=== PATIENT | female | born 1990 | race Caucasian/White ===

== ENCOUNTER 2019-03-19 16:02 | Inpatient (IN) | payer BC ==
[~2019-03-19 16:02] MED LIST: ISOVUE-370 76%-LOCM 1 ML ONE; PHENYLEPHRINE-NS 100 MCG/ML 10 ML SYRINGE ONE; Rocuronium Bromide 10 MG/ML (10ML VIAL) ONE; ePHEDrine 50 MG/ML VIAL ONE
[2019-03-19] MEDS ORDERED: Ketamine 50 MG/ML (10ML VIAL) ONE (16:17)
[2019-03-19] MEDS ORDERED: Succinylcholine Chloride 20 MG/ML 10 ml SYRINGE FS ONE (16:17)
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
[2019-03-19] MEDS ORDERED: Midazolam HCl 2 mg/2 ml Vial ONE ×3 (16:28→17:33)
[2019-03-19] MEDS ORDERED: Fentanyl 100 MCG/2 ML VIAL ONE (16:28)
[2019-03-19 16:34] LABS: Hemoglobin 12.2 g/dL (12.0-16.0); Mean Corpuscular HGB CONC 32.2 g/dL (32.0-36.0); Mean Corpuscular Volume 96.2 fL (78.0-98.0); Mean Platelet Volume 7.6 fL (7.4-10.4); Platelet Count 333 thou/uL (130-400); RBC Distribution Width 12.2 % (11.5-14.5); Red Blood Cell (RBC) Count 3.93 mill/uL (4.20-5.40); White Blood Cell (WBC) Count 39.2 thou/uL (4.8-10.8)
[2019-03-19 16:41] LABS: INR-International Normal Ratio 1.1; PTT 28.2 SEC (22.9-36.1); Prothrombin Time 14.5 SEC (12.0-14.7)
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
[2019-03-19 16:48] LABS: Band 23 % (5-11); Lymphocytes 5 % (21-51); MDiff Complete? YES; Metamyelocyte 2 % (0-0); Monocytes 5 % (0-10); Neutrophil 63 % (42-75); Platelet Morphology Comment Appears Adequate; RBC Morphology Normal; Reactive Lymphocytes 2 % (0-10)
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
[2019-03-19 16:56] LABS: ALT (SGPT) 176 U/L (8-55); AST (SGOT) 233 U/L (5-34); Albumin 4.3 g/dL (3.5-5.0); Alkaline Phosphatase 96 U/L (40-150); Anion Gap 20 mmol/L (10-20); BUN (Urea Nitrogen) 9 mg/dL (7.0-18.7); Bilirubin, Total 1.6 mg/dL (0.2-1.2); Calc. Creatinine Clearance 0 mL/min (70-130); Calcium 9.3 mg/dL (7.8-10.44); Carbon Dioxide 19 mmol/L (22-29); Chloride 102 mmol/L (98-107); Estimated GFR-MDRD 61; Globulin 2.6 g/dL (2.4-3.5); Glucose 130 mg/dL (70-105); Potassium 3.2 mmol/L (3.5-5.1); Protein, Total 6.9 g/dL (6.0-8.3); Sodium 138 mmol/L (136-145)
--- NOTE | 2019-03-19 16:59 | CT ---
CT Cervical Spine WO Con Indication: Pain/Injury COMPARISON: None FINDINGS: Acute fracture/subluxation: There is an acute fracture involving the right C6 lamina extending into t he spinous process Spinal alignment: Reversal normal cervical curvature. There is slight widening of the interspinous sp aces notably at the mid cervical spine. This may relate to ligamentous injury from flexion/extension injury. Vertebral body heights: Maintained. Cervical spine degenerative change: None of significance. IMPRESSION: Acute right C6 laminar fracture extending in the spinous process. There is a reversal normal cervical curvature, with associated widening of the interspinous spaces. Consider MRI for further interrogation for associated, potential ligamentous injury. Telephone call placed to ER physician at 1650 hours.
[2019-03-19] MEDS ORDERED: Fentanyl 250 MCG/5 ML VIAL ONE (17:33)
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
[2019-03-19] MEDS ORDERED: Levofloxacin 500 mg/D5W 100 ml Premix Bag ONE (18:25)
[2019-03-19 18:33] LABS: BHCG - Serum Negative (NEGATIVE); Pregs Control Background? CLEAR/WHITE (CLR/WHITE); Pregs Control Bar Appear? YES (CONTROL BAR)
[2019-03-19] MEDS ORDERED: Iothalamate Meglumine 60% 50 ML VIAL FS ONE (18:34)
--- NOTE | 2019-03-19 19:11 | RAD ---
AP VIEW OF THE PELVIS: 03/19/19 INDICATION: History of emergency examination. FINDINGS: There is an IUD in the central aspect of the pelvis. The obturator ring fractures bilaterally are sim ilar appearing to a recent CT dated 03/19/19. Left pubic root fracture is unchanged. Right comminuted sacral ala fracture is not appreciably changed. IMPRESSION: Comminuted pelvic fractures. POS: BH
[2019-03-19] MEDS ORDERED: Phenylephrine 1% Nasal Spray 15 ML BOT ONE (19:28)
[2019-03-19] MEDS ORDERED: Phenylephrine HCL 10 MG/ML VIAL ONE (19:28)
[2019-03-19] MEDS ORDERED: Albumin 5% 500 ML ONE (19:54)
[2019-03-19] MEDS ORDERED: Insulin Regular 300 UNITS/3 ML VIAL ONE (19:57)
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
[2019-03-19 22:43] LABS: Actual Bicarbonate (HCO3a) 16.4 mEq/L (22-28); Base Excess (BEa) -8.8 mEq/L (-2.0 to +3.0); CO2 Tension 32.9 mmHg (35.0-45.0); Calcium, Ionized 1.08 mmol/L (1.12-1.30); Carboxyhemoglobin (COHb) 0.9 gm% (0.0-3.0); Hemoglobin (Hb) 11.3 g/dL (12.0-16.0); O2 Tension (PaO2) 210.8 mmHg (80.0-100.0); Potassium - ABG Lab 4.31 mmol/L (3.70-5.30); pH, Arterial 7.32 (7.35-7.45)
[2019-03-19] MEDS: fentaNYL Citrate/PF 2,000 MCG in Sodium Chloride 0.9% 60 ML IV SCH (22:47)
[2019-03-19 22:49] LABS: ALV-art Gradient 33.275 (0-20); Puncture Site line
[2019-03-19 22:55] LABS: #Lymphocytes 0.8 thou/uL (1.20-3.40); %Eosinophils 0.1 % (0.0-10.0); %Monocytes 7.1 % (0.0-10.0); %Neutrophils 86.8 % (42.0-75.0); Hemoglobin 10.8 g/dL (12.0-16.0); Mean Corpuscular HGB CONC 33.3 g/dL (32.0-36.0); Mean Corpuscular Hemoglobin 30.3 pg (27.0-31.0); Mean Platelet Volume 7.5 fL (7.4-10.4); Platelet Count 158 thou/uL (130-400); RBC Distribution Width 14.9 % (11.5-14.5); Red Blood Cell (RBC) Count 3.55 mill/uL (4.20-5.40); White Blood Cell (WBC) Count 13.8 thou/uL (4.8-10.8)
[2019-03-19] MEDS ORDERED: Propofol BOLUS 1,000 MG/100 ML VIAL IV PRN (22:56)
[2019-03-19] MEDS ORDERED: fentaNYL Citrate/PF 2,000 MCG in Sodium Chloride 0.9% 60 ML IV SCH (22:56)
[2019-03-19] MEDS ORDERED: Morphine 2 MG/ML SYRINGE SLOW IVP PRN (22:56)
[2019-03-19] MEDS ORDERED: Lorazepam 2 MG/ML VIAL SLOW IVP PRN (22:56)
[2019-03-19] MEDS ORDERED: Fentanyl BOLUS 250 ML IVPB PRN (22:56)
[2019-03-19] MEDS ORDERED: DISCONTINUE PREVIOUS NARCOTIC PAIN MEDICATIONS AND BENZODIAZEPINES FS SCH (22:56)
[2019-03-19] MEDS ORDERED: Ventilator Sedation Protocol 1 EACH FS SCH (23:00)
[2019-03-19] MEDS ORDERED: Promethazine HCl 25 MG/ML VIAL IM PRN (23:05)
[2019-03-19] MEDS ORDERED: Dextrose 50% Abboject 50 ML SYRINGE SLOW IVP PRN (23:05)
[2019-03-19] MEDS ORDERED: Dextrose 5% in Water 1,000 ML IV PRN (23:05)
--- NOTE | 2019-03-19 23:06 | RAD ---
Retrograde pyelogram: 03/19/2019 COMPARISON: None HISTORY: Retrograde with stent placement FINDINGS: Extensive pelvic fractures are noted, better assessed on recent CT examination. Contrast extravasates from the renal collecting system on the right consistent with acute injury. Abn ormal contrast media seen adjacent to the distal left ureter suggesting a ureteral injury or bladder injury at the UVJ. Final imaging demonstrates placement of bilateral double-J ureteral stents . IMPRESSION: Bilateral double-J ureteral stent placement. Contrast extravasation in the region of the right kidney a.m. distal left ureter suggest areas of acute urothelial disruption/injury.
[2019-03-19 23:13] LABS: Lactic Acid 5.3 mmol/L (0.5-2.2)
[2019-03-19] MEDS ORDERED: Famotidine 20 MG TAB PO SCH (23:15)
[2019-03-19] MEDS: Sodium Chloride 0.9% 1,000 ML IV SCH (23:16)
[2019-03-19] MEDS: Propofol 1,000 MG/100 ML VIAL IV PRN (23:16)
[2019-03-19 23:21] LABS: Anion Gap 14 mmol/L (10-20); BUN (Urea Nitrogen) 9 mg/dL (7.0-18.7); Calc. Creatinine Clearance 0 mL/min (70-130); Calcium 7.6 mg/dL (7.8-10.44); Carbon Dioxide 17 mmol/L (22-29); Chloride 108 mmol/L (98-107); Estimated GFR-MDRD 82; Glucose 166 mg/dL (70-105); Magnesium 1.4 mg/dL (1.6-2.6); Phosphorus 3.6 mg/dL (2.3-4.7); Potassium 4.4 mmol/L (3.5-5.1); Sodium 135 mmol/L (136-145)
[2019-03-19] MEDS ORDERED: Calcium Chloride 1 GM/10 ML Abboject SYRINGE IVP SCH (23:30)
[2019-03-19] MEDS ORDERED: Magnesium Sulfate 4 GM in Sodium Chloride 0.9% 250 ML 250 ML IVPB SCH (23:45)
[2019-03-20 00:58] LABS: Amphetamine Not Detected (NotDetected); Barbiturates Screen Not Detected (NotDetected); Benzodiazepine Screen Not Detected (NotDetected); Cocaine Metabolite Screen Not Detected (NotDetected); Medtox Control Line Valid? VALID (VALID); Medtox Reader # READER 1; Methadone Not Detected (NotDetected); Methamphetamine Detected (NotDetected); Opiate Screen Not Detected (NotDetected); Oxycodone Screen Not Detected (NotDetected); Phencyclidine (PCP) Not Detected (NotDetected); THC/Cannabinoid Screen Not Detected (NotDetected); Tricyclic Screen Not Detected (NotDetected)
[2019-03-20] MEDS ORDERED: Famotidine/PF 20 mg/2ml Vial SLOW IVP SCH (01:15)
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
[2019-03-20 05:16] LABS: #Lymphocytes 1.4 thou/uL (1.20-3.40); #Monocytes 1.2 thou/uL (0.11-0.59); #Neutrophils 10.7 thou/uL (1.40-6.50); %Basophils 0.1 % (0.0-1.0); %Eosinophils 0.1 % (0.0-10.0); %Lymphocytes 10.3 % (21.0-51.0); %Monocytes 9.1 % (0.0-10.0); %Neutrophils 80.4 % (42.0-75.0); Hemoglobin 10.7 g/dL (12.0-16.0); Mean Corpuscular HGB CONC 33.1 g/dL (32.0-36.0); Mean Corpuscular Hemoglobin 30.1 pg (27.0-31.0); Mean Corpuscular Volume 90.9 fL (78.0-98.0); Platelet Count 178 thou/uL (130-400); RBC Distribution Width 15.1 % (11.5-14.5); Red Blood Cell (RBC) Count 3.57 mill/uL (4.20-5.40); White Blood Cell (WBC) Count 13.3 thou/uL (4.8-10.8)
[2019-03-20 06:06] LABS: Lactic Acid 2.8 mmol/L (0.5-2.2)
[2019-03-20 06:09] LABS: Anion Gap 12 mmol/L (10-20); BUN (Urea Nitrogen) 8 mg/dL (7.0-18.7); Calc. Creatinine Clearance 117 mL/min (70-130); Carbon Dioxide 19 mmol/L (22-29); Chloride 108 mmol/L (98-107); Estimated GFR-MDRD Greater than 90; Glucose 140 mg/dL (70-105); Phosphorus 3.4 mg/dL (2.3-4.7); Potassium 4.5 mmol/L (3.5-5.1); Sodium 134 mmol/L (136-145)
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
[2019-03-20] MEDS ORDERED: CEFAZOLIN 2 GM in Premix Bag 1 BAG IVPB SCH (07:45)
--- NOTE | 2019-03-20 07:45 | RAD ---
EXAM: XR Chest 1 View Portable PROVIDED CLINICAL HISTORY: Right thoracostomy tube. COMPARISON: 03/19/2019. FINDINGS: Endotracheal tube is again noted in place with tip overlying the T2-3 level. Right subclavian central venous catheter is now noted in place with tip overlying the right atrium. Nasogastric tube is also again noted place. A right-sided thoracostomy tube has been placed in the interim. No obvious pn eumothorax is seen. Halo device does obscure the lung apices. Partial visualization of ureteral stents. The cardiac silhouette and pulmonary vasculature are within normal limits. The lungs are clear, and n o pleural effusion, consolidation, or pneumothorax is appreciated on this exam. Right-sided rib fractures are again seen. IMPRESSION: 1. Multiple lines and tubes in place as described above. 2. Right-sided rib fractures. No pneumothorax is seen.
[2019-03-20] MEDS ORDERED: Famotidine 20 MG TAB PO SCH (09:00)
[2019-03-20] MEDS: Famotidine/PF 20 mg/2ml Vial SLOW IVP SCH ×2 (09:00→21:25)
[2019-03-20] MEDS ORDERED: Midazolam HCl 2 mg/2 ml Vial ONE ×2 (09:16→12:02)
[2019-03-20] MEDS: Sodium Chloride 0.9% 1,000 ML IV SCH ×3 (09:20→23:45)
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
[2019-03-20] MEDS ORDERED: Sodium Chloride 0.9% 1,000 ML IV SCH (09:45)
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
[2019-03-20] MEDS ORDERED: Hydrocortisone Sod Succ/PF 100 mg/2 ml Vial IVP SCH ×2 (10:45→15:00)
[2019-03-20 10:54] LABS: Actual Bicarbonate (HCO3a) 19.8 mEq/L (22-28); Base Excess (BEa) -4.4 mEq/L (-2.0 to +3.0); CO2 Tension 33.3 mmHg (35.0-45.0); Calcium, Ionized 1.11 mmol/L (1.12-1.30); Carboxyhemoglobin (COHb) 0.3 gm% (0.0-3.0); Hemoglobin (Hb) 10.1 g/dL (12.0-16.0); O2 Tension (PaO2) 163.8 mmHg (80.0-100.0); Potassium - ABG Lab 4.16 mmol/L (3.70-5.30); pH, Arterial 7.39 (7.35-7.45)
[2019-03-20 10:56] LABS: Puncture Site LINE
[2019-03-20 10:57] LABS: #Lymphocytes 2.2 thou/uL (1.20-3.40); #Monocytes 0.9 thou/uL (0.11-0.59); #Neutrophils 9.4 thou/uL (1.40-6.50); %Basophils 0.2 % (0.0-1.0); %Eosinophils 0.3 % (0.0-10.0); %Lymphocytes 17.2 % (21.0-51.0); %Monocytes 7.1 % (0.0-10.0); %Neutrophils 75.2 % (42.0-75.0); Hemoglobin 9.6 g/dL (12.0-16.0); Mean Corpuscular Volume 91.1 fL (78.0-98.0); Platelet Count 166 thou/uL (130-400); Red Blood Cell (RBC) Count 3.21 mill/uL (4.20-5.40); White Blood Cell (WBC) Count 12.6 thou/uL (4.8-10.8)
[2019-03-20 10:57] LABS: ALV-art Gradient 44.125 (0-20)
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
[2019-03-20] MEDS ORDERED: Calcium Chloride 1 GM/10 ML Abboject SYRINGE IVP SCH (11:45)
[2019-03-20] MEDS ORDERED: Fentanyl 100 MCG/2 ML VIAL ONE ×2 (12:02→13:43)
--- NOTE | 2019-03-20 14:17 | RAD ---
EXAM: XR Pelvis Minimum 3 Views PROVIDED CLINICAL HISTORY: ORIF pelvis COMPARISON: AP pelvis radiograph on 03/19/2019 FINDINGS: 6 intraoperative fluoroscopic images of the pelvis are submitted for interpretation. An external fixa tion device is noted in place. There are 2 long screws transversely oriented and transfixing the fracture of the right sacrum and transfixing each sacroiliac joint. Bilateral ureteral stents are noted in place. Skin clips overlie the lower abdomen and pelvis. A T-sh aped intrauterine contraceptive device is noted in place. There is visualization of bilateral superior and inferior pubic rami fractures. Fluoroscopy: Total fluoroscopy time is 171.5 seconds with total dose of 46.7 mGy. IMPRESSION: Internal fixation of fractures involving the right sacral ala as well as fixation of the bilateral sa croiliac joints with 2 long screws. Additional findings are as described above, and correlation with intraoperative findings is suggested.
[2019-03-20 15:22] LABS: Mean Corpuscular HGB CONC 32.6 g/dL (32.0-36.0); Mean Corpuscular Hemoglobin 29.8 pg (27.0-31.0); Mean Corpuscular Volume 91.6 fL (78.0-98.0); Mean Platelet Volume 8.2 fL (7.4-10.4); Platelet Count 115 thou/uL (130-400); RBC Distribution Width 15.1 % (11.5-14.5); Red Blood Cell (RBC) Count 2.68 mill/uL (4.20-5.40); White Blood Cell (WBC) Count 8.9 thou/uL (4.8-10.8)
[2019-03-20 15:33] LABS: Lactic Acid 0.9 mmol/L (0.5-2.2)
[2019-03-20] MEDS ORDERED: Ondansetron PF 4 MG/2 ML Vial ONE (15:51)
[2019-03-20] MEDS ORDERED: Dexamethasone 20 MG/5 ML VIAL ONE (15:51)
[2019-03-20] MEDS ORDERED: Rocuronium Bromide 10 MG/ML (10ML VIAL) ONE (15:51)
--- NOTE | 2019-03-20 15:56 | CT ---
CT of the pelvis without IV contrast INDICATION: Postoperative pelvis; evaluate hardware placement COMPARISON: Prior CT the chest, abdomen and pelvis dated 03/19/2019 FINDINGS: Since comparison examination there is been interval placement of an external fixator. The e xternal fixator pins project into the anterior column of the acetabulum bilaterally. There are bilateral obturator ring fractures. The left pubic root fracture is unchanged. There is been interval SI joints screws placed bilaterally across both joints fixating the comminuted right zone 3 sacral alar fracture. Fracture alignment is near-anatomic. The lowermost SI joint screw projects into the anterior aspect of the sacral central spinal canal on image 87 of the sagitta l series. The screw additionally breaches the very superior aspect of the right S2 neural foramina. There are bilateral ureteral stents. There is extensive edema involving the soft tissues of the lower pelvis. There is an IUD seen within the region of the uterus. There is mild anasarca. There is gas present within the lower abdominal cavity and pelvis which may be postoperative in nature. The patien t has a laparotomy wound. There is a Torres catheter within a decompressed bladder. IMPRESSION: 1. Postoperative pelvis. There is been interval placement of 2 SI joint arthrodesis screws traversing both SI joints. The lowermost SI joint screw traversing the S2 vertebral level projects in the anterior aspect of the sacral spinal canal and breaches the very superior aspect of the right S2 neur al foramina. The anterior pelvic fracture alignment appears relatively stable to the comparison CT evaluation. 2. There is scattered free fluid and free air within the lower pelvis, likely postoperative in nature and to some extent related to anasarca. 3. There is visualization of distal bilateral ureteral stents and a Torres catheter.
[2019-03-20] MEDS: CEFAZOLIN 2 GM in Premix Bag 1 BAG IVPB SCH ×2 (17:38→21:26)
[2019-03-20] MEDS: fentaNYL Citrate/PF 2,000 MCG in Sodium Chloride 0.9% 60 ML IV SCH (19:56)
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
--- NOTE | 2019-03-20 20:58 | RAD ---
Frontal radiograph chest: 03/20/2019 at 8:37 PM COMPARISON: 03/20/2019 at 7:19 AM HISTORY: Right chest tube FINDINGS: Stable right vascular catheter, nasogastric tube, endotracheal tube, and right chest tube. Heart and mediastinal contours are stable. No obvious pneumothorax is seen although assessment is suboptimal on portable imaging. Multiple partially imaged right-sided rib fractures are again noted. IMPRESSION: No significant interval change.
[2019-03-20] MEDS: Hydrocortisone Sod Succ/PF 100 mg/2 ml Vial IVP SCH (21:25)
[2019-03-20] MEDS ORDERED: fentaNYL Citrate/PF 2,000 MCG in Sodium Chloride 0.9% 60 ML IV SCH (22:26)
[2019-03-21 04:30] LABS: #Lymphocytes 0.8 thou/uL (1.20-3.40); #Monocytes 0.9 thou/uL (0.11-0.59); %Basophils 0.1 % (0.0-1.0); %Eosinophils 0.1 % (0.0-10.0); %Lymphocytes 6.7 % (21.0-51.0); %Neutrophils 85.2 % (42.0-75.0); Mean Corpuscular HGB CONC 33.2 g/dL (32.0-36.0); Mean Corpuscular Hemoglobin 30.6 pg (27.0-31.0); Mean Corpuscular Volume 92.1 fL (78.0-98.0); Mean Platelet Volume 8.6 fL (7.4-10.4); Platelet Count 104 thou/uL (130-400); RBC Distribution Width 14.8 % (11.5-14.5); Red Blood Cell (RBC) Count 2.28 mill/uL (4.20-5.40); White Blood Cell (WBC) Count 11.7 thou/uL (4.8-10.8)
[2019-03-21 04:42] LABS: Anion Gap 10 mmol/L (10-20); BUN (Urea Nitrogen) 9 mg/dL (7.0-18.7); Calc. Creatinine Clearance 133 mL/min (70-130); Calcium 8.3 mg/dL (7.8-10.44); Carbon Dioxide 21 mmol/L (22-29); Chloride 110 mmol/L (98-107); Estimated GFR-MDRD Greater than 90; Glucose 132 mg/dL (70-105); Magnesium 1.7 mg/dL (1.6-2.6); Phosphorus 2.2 mg/dL (2.3-4.7); Potassium 3.9 mmol/L (3.5-5.1); Sodium 137 mmol/L (136-145)
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
[2019-03-21] MEDS: CEFAZOLIN 2 GM in Premix Bag 1 BAG IVPB SCH (06:04)
[2019-03-21] MEDS: Hydrocortisone Sod Succ/PF 100 mg/2 ml Vial IVP SCH ×3 (06:05→22:11)
[2019-03-21 07:40] LABS: Actual Bicarbonate (HCO3a) 21.8 mEq/L (22-28); Base Excess (BEa) -3.6 mEq/L (-2.0 to +3.0); Calcium, Ionized 1.18 mmol/L (1.12-1.30); Carboxyhemoglobin (COHb) 1.2 gm% (0.0-3.0); Hemoglobin (Hb) 7.2 g/dL (12.0-16.0); O2 Tension (PaO2) 125.7 mmHg (80.0-100.0); Potassium - ABG Lab 3.82 mmol/L (3.70-5.30); pH, Arterial 7.34 (7.35-7.45)
[2019-03-21 07:42] LABS: Puncture Site LB
[2019-03-21] MEDS ORDERED: Magnesium 2 GM/50 ML 2 GM in Premix Bag 1 BAG IVPB SCH (08:00)
[2019-03-21] MEDS ORDERED: Potassium Phosphate 30 MMOL in Sodium Chloride 0.9% 500 ML IVPB SCH (08:00)
[2019-03-21] MEDS: Sodium Chloride 0.9% 1,000 ML IV SCH ×2 (08:27→20:19)
[2019-03-21] MEDS: Propofol 1,000 MG/100 ML VIAL IV PRN (08:27)
[2019-03-21] MEDS: Famotidine/PF 20 mg/2ml Vial SLOW IVP SCH ×2 (08:42→22:11)
--- NOTE | 2019-03-21 08:44 | RAD ---
CHEST 1 VIEW: HISTORY: Pneumothorax. Chest tube. Followup. COMPARISON: 03/20/2019. FINDINGS: Cardiac silhouette magnified by projection. Pulmonary vasculature is unremarkable. Mediastinum is m idline. Endotracheal catheter, nasogastric tube, and right subclavian central venous catheter remain in place. Right thoracostomy tube has been withdrawn slightly, so that the side hole now lies at the level of t he chest wall. A small amount of right lower lateral chest wall gas. No evidence of pneumothorax. IMPRESSION: 1. Slight retraction of the right thoracostomy tube as detailed above with a small amount of right c hest wall gas. 2. Other posttraumatic findings are stable. POS: [facility]
[2019-03-21] MEDS ORDERED: Morphine 4 MG/ML VIAL ONE (13:20)
[2019-03-21] MEDS ORDERED: Acetaminophen 1,000 MG in Premix Bag 1 BAG IVPB SCH (13:45)
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
[2019-03-21] MEDS: Acetaminophen 650 MG/20.3 ML UDCUP PO SCH ×3 (15:18→22:15)
[2019-03-21] MEDS: Acetaminophen 650 MG Suppository PR SCH ×2 (15:23→22:15)
[2019-03-21] MEDS: Morphine 4 MG/ML VIAL SLOW IVP PRN ×4 (15:42→22:17)
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
[2019-03-22] MEDS ORDERED: Lorazepam 2 MG/ML VIAL SLOW IVP SCH (01:45)
[2019-03-22] MEDS: Sodium Chloride 0.9% 1,000 ML IV SCH ×4 (01:47→22:27)
[2019-03-22] MEDS: Morphine 4 MG/ML VIAL SLOW IVP PRN (01:47)
[2019-03-22 03:54] LABS: #Monocytes 0.7 thou/uL (0.11-0.59); #Neutrophils 10.4 thou/uL (1.40-6.50); %Lymphocytes 7.9 % (21.0-51.0); %Monocytes 5.7 % (0.0-10.0); %Neutrophils 86.4 % (42.0-75.0); Hemoglobin 7.7 g/dL (12.0-16.0); Mean Corpuscular HGB CONC 33.4 g/dL (32.0-36.0); Mean Corpuscular Hemoglobin 30.8 pg (27.0-31.0); Mean Corpuscular Volume 92.2 fL (78.0-98.0); Mean Platelet Volume 7.8 fL (7.4-10.4); Platelet Count 118 thou/uL (130-400); RBC Distribution Width 14.3 % (11.5-14.5)
[2019-03-22 04:14] LABS: Anion Gap 11 mmol/L (10-20); BUN (Urea Nitrogen) 9 mg/dL (7.0-18.7); Calc. Creatinine Clearance 147 mL/min (70-130); Calcium 8.5 mg/dL (7.8-10.44); Carbon Dioxide 24 mmol/L (22-29); Chloride 109 mmol/L (98-107); Estimated GFR-MDRD Greater than 90; Glucose 101 mg/dL (70-105); Lactic Acid 0.8 mmol/L (0.5-2.2); Magnesium 1.9 mg/dL (1.6-2.6); Phosphorus 2.1 mg/dL (2.3-4.7); Potassium 3.7 mmol/L (3.5-5.1); Sodium 140 mmol/L (136-145)
[2019-03-22] MEDS: Acetaminophen 650 MG/20.3 ML UDCUP PO SCH ×2 (04:15→09:23)
[2019-03-22] MEDS: Acetaminophen 650 MG Suppository PR SCH ×2 (04:15→10:38)
[2019-03-22] MEDS: Hydrocortisone Sod Succ/PF 100 mg/2 ml Vial IVP SCH ×3 (06:17→22:17)
--- NOTE | 2019-03-22 08:48 | RAD ---
CHEST 1 VIEW: INDICATION: History of chest tube placement on water seal. COMPARISON: Prior study dated 03/21/2019. FINDINGS: There is a right side thoracostomy tube in place. The side hole in this catheter is seen adjacent to the right chest wall. There is a right subclavian central venous catheter. No pneumothorax is evid ent. Heart size is normal. The lungs are clear. The patient has been extubated with removal of the gastric catheter. IMPRESSION: 1. Interval extubation with removal of gastric catheter. 2. Right thoracostomy tube is unchanged. No pneumothorax is evident. Right subclavian central veno us catheter is stable. POS: BH
[2019-03-22] MEDS: Morphine 2 MG/ML SYRINGE SLOW IVP PRN ×2 (09:20→13:22)
[2019-03-22] MEDS: Famotidine/PF 20 mg/2ml Vial SLOW IVP SCH ×2 (09:24→22:17)
[2019-03-22 12:49] VITALS: BMI 26.4
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
[2019-03-23] MEDS: Morphine 4 MG/ML VIAL SLOW IVP PRN ×2 (00:24→08:33)
[2019-03-23] MEDS: Hydrocortisone Sod Succ/PF 100 mg/2 ml Vial IVP SCH ×3 (06:11→20:29)
[2019-03-23] MEDS: Famotidine/PF 20 mg/2ml Vial SLOW IVP SCH ×2 (08:33→20:29)
--- NOTE | 2019-03-23 08:58 | RAD ---
Portable chest: INDICATIONS: Follow-up chest tube removal. COMPARISON: 03/22/2019 FINDINGS: Right chest tube has been removed. There is now a small right pneumothorax noted, estimated 15-20%. T here is linear atelectasis in left lung base. Lungs otherwise clear. IMPRESSION: Small right pneumothorax.
[2019-03-23 09:04] LABS: #Lymphocytes 1.1 thou/uL (1.20-3.40); #Monocytes 0.5 thou/uL (0.11-0.59); %Basophils 0.4 % (0.0-1.0); %Eosinophils 0.1 % (0.0-10.0); %Lymphocytes 10.3 % (21.0-51.0); %Monocytes 5.1 % (0.0-10.0); %Neutrophils 84.1 % (42.0-75.0); Hemoglobin 8.1 g/dL (12.0-16.0); Mean Corpuscular HGB CONC 33.5 g/dL (32.0-36.0); Mean Corpuscular Volume 92.6 fL (78.0-98.0); Mean Platelet Volume 7.2 fL (7.4-10.4); Platelet Count 150 thou/uL (130-400); RBC Distribution Width 13.8 % (11.5-14.5); Red Blood Cell (RBC) Count 2.62 mill/uL (4.20-5.40); White Blood Cell (WBC) Count 10.7 thou/uL (4.8-10.8)
[2019-03-23 09:24] LABS: Anion Gap 9 mmol/L (10-20); BUN (Urea Nitrogen) 14 mg/dL (7.0-18.7); Calc. Creatinine Clearance 162 mL/min (70-130); Calcium 8.3 mg/dL (7.8-10.44); Carbon Dioxide 26 mmol/L (22-29); Chloride 109 mmol/L (98-107); Estimated GFR-MDRD Greater than 90; Glucose 99 mg/dL (70-105); Phosphorus 2.2 mg/dL (2.3-4.7); Potassium 3.7 mmol/L (3.5-5.1); Sodium 140 mmol/L (136-145)
[2019-03-23] MEDS: Sodium Chloride 0.9% 1,000 ML IV SCH ×2 (17:52→23:01)
[2019-03-23] MEDS: Morphine 2 MG/ML SYRINGE SLOW IVP PRN ×2 (18:34→20:38)
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
[2019-03-24] MEDS: Sodium Chloride 0.9% 1,000 ML IV SCH ×3 (03:44→22:47)
[2019-03-24] MEDS: Morphine 2 MG/ML SYRINGE SLOW IVP PRN ×2 (05:32→20:30)
[2019-03-24] MEDS: Hydrocortisone Sod Succ/PF 100 mg/2 ml Vial IVP SCH ×3 (05:38→22:08)
[2019-03-24 06:12] LABS: #Lymphocytes 1.7 thou/uL (1.20-3.40); #Monocytes 0.9 thou/uL (0.11-0.59); #Neutrophils 8.1 thou/uL (1.40-6.50); %Basophils 0.1 % (0.0-1.0); %Eosinophils 0.2 % (0.0-10.0); %Lymphocytes 15.7 % (21.0-51.0); %Neutrophils 75.9 % (42.0-75.0); Hemoglobin 8.1 g/dL (12.0-16.0); Mean Corpuscular HGB CONC 32.2 g/dL (32.0-36.0); Mean Corpuscular Hemoglobin 29.8 pg (27.0-31.0); Mean Corpuscular Volume 92.6 fL (78.0-98.0); Mean Platelet Volume 7.7 fL (7.4-10.4); Platelet Count 177 thou/uL (130-400); RBC Distribution Width 13.8 % (11.5-14.5); Red Blood Cell (RBC) Count 2.72 mill/uL (4.20-5.40); White Blood Cell (WBC) Count 10.6 thou/uL (4.8-10.8)
[2019-03-24 06:40] LABS: Anion Gap 8 mmol/L (10-20); BUN (Urea Nitrogen) 15 mg/dL (7.0-18.7); Calc. Creatinine Clearance 168 mL/min (70-130); Calcium 8.1 mg/dL (7.8-10.44); Carbon Dioxide 27 mmol/L (22-29); Chloride 109 mmol/L (98-107); Estimated GFR-MDRD Greater than 90; Glucose 107 mg/dL (70-105); Magnesium 1.7 mg/dL (1.6-2.6); Phosphorus 2.7 mg/dL (2.3-4.7); Potassium 3.6 mmol/L (3.5-5.1); Sodium 140 mmol/L (136-145)
--- NOTE | 2019-03-24 07:56 | RAD ---
PORTABLE CHEST: Date: 03/24/19 HISTORY: Follow-up pneumothorax. COMPARISON: 03/23/19. FINDINGS: Right pneumothorax is again seen. There is evidence of associated right effusion blunting the CP angl e. Small right pneumothorax does not appear significantly changed from yesterday. Central line is unc hanged in position. Left lung remains well aerated. There continues to be suggestion of streaky atele ctasis in the left lung base, unchanged from yesterday. IMPRESSION: Stable chest findings. Right pneumothorax and right effusion again noted. POS: OFF
[2019-03-24] MEDS: Famotidine/PF 20 mg/2ml Vial SLOW IVP SCH ×2 (09:06→20:32)
[2019-03-24] MEDS: Morphine 4 MG/ML VIAL SLOW IVP PRN ×3 (11:16→18:15)
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
[2019-03-24] MEDS ORDERED: Cyclobenzaprine 10 MG TAB PO PRN (20:07)
[2019-03-24] MEDS ORDERED: traMADol HCl 50 MG TAB PO PRN ×2 (20:07)
[2019-03-24] MEDS: Acetaminophen 500 MG TAB PO SCH ×2 (20:32→22:08)
[2019-03-24] MEDS: Ibuprofen 600 MG TAB PO SCH ×2 (20:32→22:09)
[2019-03-24] MEDS: Senokot S 8.6-50 MG TAB PO SCH ×2 (20:32→22:09)
[2019-03-25] MEDS: Acetaminophen 500 MG TAB PO SCH ×4 (02:01→20:58)
[2019-03-25] MEDS: Morphine 2 MG/ML SYRINGE SLOW IVP PRN ×2 (03:13→20:46)
[2019-03-25] MEDS: Ibuprofen 600 MG TAB PO SCH ×3 (03:21→20:58)
[2019-03-25] MEDS: Hydrocortisone Sod Succ/PF 100 mg/2 ml Vial IVP SCH (05:54)
[2019-03-25] MEDS: Senokot S 8.6-50 MG TAB PO SCH ×2 (08:40→20:58)
[2019-03-25] MEDS: Ascorbic Acid 500 mg Chewable Tablet PO SCH (08:40)
[2019-03-25] MEDS: Polyethylene Glycol 3350 17 GM Packet PO SCH (08:40)
[2019-03-25] MEDS: Ferrous Sulfate 325 MG TAB PO SCH ×2 (08:40→16:52)
--- NOTE | 2019-03-25 08:44 | RAD ---
CHEST 1 VIEW: HISTORY: Fall with right-sided pneumothorax. COMPARISON: 03/24/2019. FINDINGS: Persistent right-sided hydropneumothorax. Bilateral vascular congestion. Small left pleural effusio n. IMPRESSION: Stable right hydropneumothorax, vascular congestion, and small left pleural effusion. Continued shor t-term followup. POS: LISSETH
[2019-03-25 10:34] LABS: Actual Bicarbonate (HCO3a) 17.4 mEq/L (22-28); Analyzer IN Cardio OR; CO2 Tension 28.6 mmHg (35.0-45.0); Calcium, Ionized 1.11 mmol/L (1.12-1.30); Carboxyhemoglobin (COHb) 1.1 gm% (0.0-3.0); Hemoglobin (Hb) 12.8 g/dL (12.0-16.0); Potassium - ABG Lab 4.03 mmol/L (3.70-5.30)
[2019-03-25 10:35] LABS: Analyzer IN Cardio OR; Base Excess (BEa) -7.1 mEq/L (-2.0 to +3.0); CO2 Tension 35.2 mmHg (35.0-45.0); Calcium, Ionized 1.12 mmol/L (1.12-1.30); Carboxyhemoglobin (COHb) 0.8 gm% (0.0-3.0); Hemoglobin (Hb) 12.5 g/dL (12.0-16.0); Potassium - ABG Lab 3.94 mmol/L (3.70-5.30); pH, Arterial 7.33 (7.35-7.45)
[2019-03-25 10:41] LABS: Puncture Site A
[2019-03-25 10:50] LABS: Puncture Site A
[2019-03-25] MEDS ORDERED: Ketorolac Tromethamine 30 MG/ML VIAL IVP SCH (11:00)
[2019-03-25] MEDS ORDERED: Acetaminophen 1,000 MG in Premix Bag 1 BAG IVPB SCH (11:00)
[2019-03-25] MEDS ORDERED: ISOVUE-370 76%-LOCM 1 ML ONE (13:50)
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
--- NOTE | 2019-03-25 17:02 | RAD ---
XR Cystogram STANDARD History: [Evaluate for bladder rupture. Trauma.] Comparison: CT examination March 19, 2019 Findings: Patient was brought to fluoroscopy suite. Optical [employer] Silverer radiographs demonstrate postoperative arevalo es of the pelvis. Double-J ureteral stents are present bilaterally. There are fully threaded cannulated screws through the SI joints bilaterally. External fixator is present. Bilateral pulmonary obturator ring fractures are present. Patient was given 400 cc of contrast instilled retrograde through the Torres catheter. There is contra st extending along the right ureter. No contrast reflux into the left ureter. Contrast refluxed into the right ureter and into the right renal collecting system and the urinoma. No evidence for urinary bladder leak. Impression: 1. No evidence for urinary bladder leak. 2. No contrast is seen extending retrograde to the left ureter. 3. Retrograde contrast extending to the right ureter spills into a urinoma of the right intrarenal co llecting system.
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
[2019-03-26] MEDS: Morphine 2 MG/ML SYRINGE SLOW IVP PRN ×3 (01:03→21:17)
[2019-03-26] MEDS: Acetaminophen 500 MG TAB PO SCH ×4 (01:26→20:53)
[2019-03-26] MEDS: Ibuprofen 600 MG TAB PO SCH ×3 (03:29→20:53)
[2019-03-26 05:41] LABS: #Eosinphils 0.2 thou/uL (0.0-0.7); #Lymphocytes 2.3 thou/uL (1.20-3.40); %Basophils 0.3 % (0.0-1.0); %Eosinophils 1.3 % (0.0-10.0); %Lymphocytes 19.7 % (21.0-51.0); %Monocytes 8.7 % (0.0-10.0); Hemoglobin 8.9 g/dL (12.0-16.0); Mean Corpuscular HGB CONC 32.2 g/dL (32.0-36.0); Mean Corpuscular Hemoglobin 29.5 pg (27.0-31.0); Mean Corpuscular Volume 91.6 fL (78.0-98.0); Mean Platelet Volume 7.2 fL (7.4-10.4); Platelet Count 253 thou/uL (130-400); RBC Distribution Width 14.5 % (11.5-14.5); Red Blood Cell (RBC) Count 3.03 mill/uL (4.20-5.40); White Blood Cell (WBC) Count 11.5 thou/uL (4.8-10.8)
[2019-03-26 05:56] LABS: Magnesium 1.4 mg/dL (1.6-2.6); Phosphorus 3.1 mg/dL (2.3-4.7)
[2019-03-26] MEDS ORDERED: Magnesium 2 GM/50 ML 2 GM in Premix Bag 1 BAG IVPB SCH ×2 (08:30→09:00)
--- NOTE | 2019-03-26 08:48 | RAD ---
CHEST 1 VIEW: INDICATION: History of followup right-sided pneumothorax. FINDINGS: The small to moderate right-sided hydropneumothorax is likely unchanged in size from the comparison d ated 03/25/2019 at 6:53 a.m. Right side subclavian central venous catheter is unchanged in position. The left lung is clear. No acute osseous abnormality is evident. IMPRESSION: Stable right-sided hydropneumothorax. POS: BH
[2019-03-26] MEDS: Ferrous Sulfate 325 MG TAB PO SCH ×2 (09:00→17:21)
[2019-03-26] MEDS: Ascorbic Acid 500 mg Chewable Tablet PO SCH (09:00)
[2019-03-26] MEDS: Senokot S 8.6-50 MG TAB PO SCH ×2 (09:00→20:53)
[2019-03-26] MEDS: Polyethylene Glycol 3350 17 GM Packet PO SCH (09:00)
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
--- NOTE | 2019-03-26 10:10 | ULT ---
BILATERAL LOWER EXTREMITY VENOUS DOPPLER ULTRASOUND: HISTORY: Bilateral lower extremity edema. TECHNIQUE: Toney scale ultrasound with color flow and spectral Doppler imaging of the deep venous systems of the lower extremities performed bilaterally. FINDINGS: There is inadequate evaluation of the right femoral vein in the mid thigh. The remainder of the deep venous systems of the lower extremities including the common femoral, femoral, deep femoral, poplite al, posterior tibial, and greater saphenous veins demonstrate normal flow, compression, and augmentat ion. IMPRESSION: Limited exam. No evidence of deep vein thrombosis in either lower extremity. POS: [facility]
[2019-03-26] MEDS ORDERED: Lidocaine 1% (PF) 30 ML VIAL ONE (10:26)
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
--- NOTE | 2019-03-26 16:36 | PDOC.EVN ---
Event Note - Event Note Event Note: Patient continues to refuse chest tube placement. Risk of explained to patient if this procedure is ignored and the patient stares and does not communicate although pt able to follow commands and speak. Patients mother at bedside, who is also encouraging the patient to have the chest tube placed as she has a right sided pneumothorax. When a mental status exam is attempted the pt refuses to state her name and points to her arm band. When asked the date or location she states she does not know. Dr. Rivera also at bedside to speak with pt about the need for a chest tube and she states "I refuse the procedure" . [facility] consult placed. Spoke with [facility] rep who states pt refuses to communicate and speak to her.
[2019-03-27] MEDS: Acetaminophen 500 MG TAB PO SCH ×4 (01:16→21:57)
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
[2019-03-27] MEDS: Morphine 2 MG/ML SYRINGE SLOW IVP PRN ×2 (03:21→09:35)
[2019-03-27] MEDS: Ibuprofen 600 MG TAB PO SCH ×3 (04:09→21:57)
[2019-03-27 05:49] LABS: #Eosinphils 0.2 thou/uL (0.0-0.7); #Lymphocytes 1.8 thou/uL (1.20-3.40); #Neutrophils 8.4 thou/uL (1.40-6.50); %Basophils 0.3 % (0.0-1.0); %Eosinophils 1.5 % (0.0-10.0); %Lymphocytes 15.5 % (21.0-51.0); %Monocytes 8.9 % (0.0-10.0); Hemoglobin 9.3 g/dL (12.0-16.0); Mean Corpuscular HGB CONC 33.5 g/dL (32.0-36.0); Mean Corpuscular Hemoglobin 30.9 pg (27.0-31.0); Mean Corpuscular Volume 92.3 fL (78.0-98.0); Mean Platelet Volume 6.6 fL (7.4-10.4); Platelet Count 273 thou/uL (130-400); RBC Distribution Width 14.4 % (11.5-14.5); Red Blood Cell (RBC) Count 3.02 mill/uL (4.20-5.40); White Blood Cell (WBC) Count 11.3 thou/uL (4.8-10.8)
[2019-03-27 06:13] LABS: Anion Gap 10 mmol/L (10-20); BUN (Urea Nitrogen) 8 mg/dL (7.0-18.7); Calc. Creatinine Clearance 188 mL/min (70-130); Carbon Dioxide 27 mmol/L (22-29); Chloride 102 mmol/L (98-107); Estimated GFR-MDRD Greater than 90; Glucose 80 mg/dL (70-105); Magnesium 1.6 mg/dL (1.6-2.6); Phosphorus 3.5 mg/dL (2.3-4.7); Potassium 3.2 mmol/L (3.5-5.1); Sodium 136 mmol/L (136-145)
--- NOTE | 2019-03-27 07:47 | RAD ---
Exam: Chest one view HISTORY:Pneumothorax Comparison: 03/26/2019 FINDINGS: Cardiac silhouette: Normal Pulmonary vessels: Normal Costophrenic angles: Clear LUNGS: No masses or consolidation. Pneumothorax: Stable right-sided pneumothorax, without cardiac mediastinal shift. Stable right-sided vascular catheter. Small right-sided pleural effusion is suspected. Osseous abnormalities: None IMPRESSION: 1. Stable right-sided pneumothorax. 2. Stable pleural effusion.
[2019-03-27] MEDS: Ferrous Sulfate 325 MG TAB PO SCH ×2 (10:25→18:03)
[2019-03-27] MEDS: Ascorbic Acid 500 mg Chewable Tablet PO SCH (10:25)
[2019-03-27] MEDS: Senokot S 8.6-50 MG TAB PO SCH ×2 (10:25→21:57)
[2019-03-27] MEDS: Polyethylene Glycol 3350 17 GM Packet PO SCH (10:25)
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
[2019-03-28] MEDS: Acetaminophen 500 MG TAB PO SCH ×4 (02:13→21:51)
[2019-03-28] MEDS: Ibuprofen 600 MG TAB PO SCH ×3 (04:25→21:51)
--- NOTE | 2019-03-28 08:48 | RAD ---
CHEST 1 VIEW: Date: 03/28/19 HISTORY: Pneumothorax. COMPARISON: 03/27/19. FINDINGS: Essentially stable right-sided pneumothorax. Stable opacification of the right lung base. Stable righ t-sided vascular catheter. IMPRESSION: No significant change. POS: [facility]
[2019-03-28] MEDS: Polyethylene Glycol 3350 17 GM Packet PO SCH (10:35)
[2019-03-28] MEDS: Ferrous Sulfate 325 MG TAB PO SCH ×2 (10:35→17:24)
[2019-03-28] MEDS: Ascorbic Acid 500 mg Chewable Tablet PO SCH (10:35)
[2019-03-28] MEDS: Senokot S 8.6-50 MG TAB PO SCH ×2 (10:35→21:52)
[2019-03-28 12:16] LABS: Anion Gap 9 mmol/L (10-20); BUN (Urea Nitrogen) 7 mg/dL (7.0-18.7); Calc. Creatinine Clearance 180 mL/min (70-130); Calcium 8.3 mg/dL (7.8-10.44); Carbon Dioxide 27 mmol/L (22-29); Chloride 105 mmol/L (98-107); Estimated GFR-MDRD Greater than 90; Glucose 94 mg/dL (70-105); Potassium 3.5 mmol/L (3.5-5.1); Sodium 137 mmol/L (136-145)
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
[2019-03-29] MEDS: Morphine 2 MG/ML SYRINGE SLOW IVP PRN (00:18)
[2019-03-29] MEDS: Acetaminophen 500 MG TAB PO SCH ×3 (02:59→15:15)
[2019-03-29] MEDS: Ibuprofen 600 MG TAB PO SCH ×2 (03:45→13:02)
[2019-03-29 06:02] LABS: #Basophils 0.1 thou/uL (0.0-0.2); #Eosinphils 0.3 thou/uL (0.0-0.7); #Lymphocytes 2.4 thou/uL (1.20-3.40); #Neutrophils 9.2 thou/uL (1.40-6.50); %Basophils 0.7 % (0.0-1.0); %Lymphocytes 18.6 % (21.0-51.0); %Neutrophils 70.7 % (42.0-75.0); Hemoglobin 11.9 g/dL (12.0-16.0); Mean Corpuscular HGB CONC 32.8 g/dL (32.0-36.0); Mean Corpuscular Hemoglobin 30.4 pg (27.0-31.0); Mean Corpuscular Volume 92.6 fL (78.0-98.0); Mean Platelet Volume 6.6 fL (7.4-10.4); Platelet Count 401 thou/uL (130-400); RBC Distribution Width 14.2 % (11.5-14.5); Red Blood Cell (RBC) Count 3.93 mill/uL (4.20-5.40); White Blood Cell (WBC) Count 12.9 thou/uL (4.8-10.8)
[2019-03-29 06:25] LABS: Anion Gap 13 mmol/L (10-20); BUN (Urea Nitrogen) 11 mg/dL (7.0-18.7); Calc. Creatinine Clearance 165 mL/min (70-130); Calcium 9.1 mg/dL (7.8-10.44); Carbon Dioxide 22 mmol/L (22-29); Chloride 104 mmol/L (98-107); Estimated GFR-MDRD Greater than 90; Glucose 92 mg/dL (70-105); Phosphorus 3.5 mg/dL (2.3-4.7); Potassium 3.5 mmol/L (3.5-5.1); Sodium 135 mmol/L (136-145)
--- NOTE | 2019-03-29 08:11 | RAD ---
PORTABLE CHEST ONE VIEW: 03/29/2019 7:11 a.m. HISTORY: Follow up right pneumothorax. COMPARISON: Exam from the previous day. FINDINGS: No significant interval change is seen since the previous day's exam. Right-sided pneumothorax is st able. POS: OFF
[2019-03-29] MEDS ORDERED: Potassium Phosphate 15 MMOL in Sodium Chloride 0.9% 250 ML 250 ML IVPB SCH (09:00)
[2019-03-29] MEDS: Ferrous Sulfate 325 MG TAB PO SCH ×2 (09:12→16:38)
[2019-03-29] MEDS: Senokot S 8.6-50 MG TAB PO SCH ×2 (09:13→20:35)
[2019-03-29] MEDS: Ascorbic Acid 500 mg Chewable Tablet PO SCH (09:13)
[2019-03-29] MEDS: Polyethylene Glycol 3350 17 GM Packet PO SCH (09:13)
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
[2019-03-29] MEDS: fentaNYL 50 mcg/hour Patch TD SCH (20:20)
[2019-03-30 06:04] LABS: #Basophils 0.1 thou/uL (0.0-0.2); #Eosinphils 0.3 thou/uL (0.0-0.7); #Lymphocytes 2.2 thou/uL (1.20-3.40); #Monocytes 1.1 thou/uL (0.11-0.59); #Neutrophils 8.4 thou/uL (1.40-6.50); %Basophils 0.5 % (0.0-1.0); %Eosinophils 2.4 % (0.0-10.0); %Lymphocytes 18.2 % (21.0-51.0); %Monocytes 9.4 % (0.0-10.0); %Neutrophils 69.4 % (42.0-75.0); Hemoglobin 10.1 g/dL (12.0-16.0); Mean Corpuscular HGB CONC 34.3 g/dL (32.0-36.0); Mean Corpuscular Hemoglobin 31.5 pg (27.0-31.0); Mean Corpuscular Volume 91.8 fL (78.0-98.0); Mean Platelet Volume 6.8 fL (7.4-10.4); Platelet Count 373 thou/uL (130-400); White Blood Cell (WBC) Count 12.1 thou/uL (4.8-10.8)
[2019-03-30 06:16] LABS: Anion Gap 10 mmol/L (10-20); BUN (Urea Nitrogen) 10 mg/dL (7.0-18.7); Calc. Creatinine Clearance 168 mL/min (70-130); Calcium 8.8 mg/dL (7.8-10.44); Carbon Dioxide 27 mmol/L (22-29); Chloride 102 mmol/L (98-107); Estimated GFR-MDRD Greater than 90; Glucose 93 mg/dL (70-105); Magnesium 1.9 mg/dL (1.6-2.6); Phosphorus 3.6 mg/dL (2.3-4.7); Potassium 3.7 mmol/L (3.5-5.1); Sodium 135 mmol/L (136-145)
[2019-03-30] MEDS ORDERED: Potassium Phosphate 15 MMOL in Sodium Chloride 0.9% 250 ML 250 ML IVPB SCH (07:45)
[2019-03-30] MEDS: Polyethylene Glycol 3350 17 GM Packet PO SCH (08:43)
[2019-03-30] MEDS: Ferrous Sulfate 325 MG TAB PO SCH ×2 (08:43→16:27)
[2019-03-30] MEDS: Senokot S 8.6-50 MG TAB PO SCH ×2 (08:43→21:29)
[2019-03-30] MEDS: Ascorbic Acid 500 mg Chewable Tablet PO SCH (08:43)
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
[2019-03-31 05:57] LABS: #Eosinphils 0.3 thou/uL (0.0-0.7); #Lymphocytes 2.1 thou/uL (1.20-3.40); #Monocytes 1.1 thou/uL (0.11-0.59); %Basophils 0.4 % (0.0-1.0); %Eosinophils 3.2 % (0.0-10.0); %Lymphocytes 20.2 % (21.0-51.0); %Monocytes 10.3 % (0.0-10.0); %Neutrophils 65.9 % (42.0-75.0); Hemoglobin 9.8 g/dL (12.0-16.0); Mean Corpuscular HGB CONC 33.4 g/dL (32.0-36.0); Mean Corpuscular Hemoglobin 30.9 pg (27.0-31.0); Mean Corpuscular Volume 92.6 fL (78.0-98.0); Mean Platelet Volume 6.5 fL (7.4-10.4); Platelet Count 386 thou/uL (130-400); RBC Distribution Width 13.7 % (11.5-14.5); Red Blood Cell (RBC) Count 3.17 mill/uL (4.20-5.40); White Blood Cell (WBC) Count 10.6 thou/uL (4.8-10.8)
[2019-03-31 06:12] LABS: Anion Gap 8 mmol/L (10-20); BUN (Urea Nitrogen) 11 mg/dL (7.0-18.7); Calc. Creatinine Clearance 168 mL/min (70-130); Calcium 8.8 mg/dL (7.8-10.44); Carbon Dioxide 29 mmol/L (22-29); Chloride 101 mmol/L (98-107); Estimated GFR-MDRD Greater than 90; Glucose 92 mg/dL (70-105); Magnesium 1.9 mg/dL (1.6-2.6); Potassium 3.7 mmol/L (3.5-5.1); Sodium 134 mmol/L (136-145)
[2019-03-31] MEDS ORDERED: Potassium Chloride 10 MEQ/100 ML PREMIX BAG IVPB SCH (07:45)
[2019-03-31] MEDS: Polyethylene Glycol 3350 17 GM Packet PO SCH (08:47)
[2019-03-31] MEDS: Ascorbic Acid 500 mg Chewable Tablet PO SCH (08:47)
[2019-03-31] MEDS: Senokot S 8.6-50 MG TAB PO SCH ×2 (08:47→22:30)
[2019-03-31] MEDS: Ferrous Sulfate 325 MG TAB PO SCH ×2 (08:47→17:10)
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
[2019-04-01 04:45] LABS: #Basophils 0.1 thou/uL (0.0-0.2); #Eosinphils 0.3 thou/uL (0.0-0.7); #Monocytes 1.2 thou/uL (0.11-0.59); #Neutrophils 8.7 thou/uL (1.40-6.50); %Basophils 0.4 % (0.0-1.0); %Eosinophils 2.4 % (0.0-10.0); %Lymphocytes 16.4 % (21.0-51.0); %Monocytes 9.4 % (0.0-10.0); %Neutrophils 71.3 % (42.0-75.0); Hemoglobin 10.1 g/dL (12.0-16.0); Mean Corpuscular HGB CONC 32.8 g/dL (32.0-36.0); Mean Corpuscular Hemoglobin 30.3 pg (27.0-31.0); Mean Corpuscular Volume 92.6 fL (78.0-98.0); Mean Platelet Volume 6.5 fL (7.4-10.4); Platelet Count 409 thou/uL (130-400); RBC Distribution Width 13.6 % (11.5-14.5); Red Blood Cell (RBC) Count 3.34 mill/uL (4.20-5.40); White Blood Cell (WBC) Count 12.2 thou/uL (4.8-10.8)
[2019-04-01 05:06] LABS: Anion Gap 10 mmol/L (10-20); BUN (Urea Nitrogen) 9 mg/dL (7.0-18.7); Calc. Creatinine Clearance 156 mL/min (70-130); Calcium 8.9 mg/dL (7.8-10.44); Carbon Dioxide 28 mmol/L (22-29); Chloride 100 mmol/L (98-107); Estimated GFR-MDRD Greater than 90; Glucose 95 mg/dL (70-105); Phosphorus 3.6 mg/dL (2.3-4.7); Potassium 3.9 mmol/L (3.5-5.1); Sodium 134 mmol/L (136-145)
[2019-04-01] MEDS: Ferrous Sulfate 325 MG TAB PO SCH ×2 (08:58→16:14)
[2019-04-01] MEDS: Senokot S 8.6-50 MG TAB PO SCH ×2 (08:58→19:53)
[2019-04-01] MEDS: Ascorbic Acid 500 mg Chewable Tablet PO SCH (08:58)
[2019-04-01] MEDS: Polyethylene Glycol 3350 17 GM Packet PO SCH (08:58)
[2019-04-01] MEDS ORDERED: Potassium Phosphate 15 MMOL in Sodium Chloride 0.9% 250 ML 250 ML IVPB SCH (09:00)
[2019-04-01] MEDS: Morphine 2 MG/ML SYRINGE SLOW IVP PRN ×2 (09:38→21:19)
--- NOTE | 2019-04-01 10:00 | PRG ---
DATE OF SERVICE: 04/01/2019 SUBJECTIVE: Cathryn is a 28-year-old female, who is now postop day 6 from a percutaneous sacroiliac screw placement, right S1 and right S2 as well as anterior fixation of pelvis. She has been very slow with progress. She is still moderate to max assist with standing at the bedside. She has not been able to ambulate into the maurice. PHYSICAL EXAMINATION: VITAL SIGNS: Temperature is 98.5, pulse is 90, respiratory rate is 20, O2 saturation is 94% on room air, and blood pressure is 102/69. GENERAL: She is alert and responsive, a little inappropriate with examiner. She is very quiet and does not answer questions readily, one word answer such as yes and no, but does not elaborate, and she has a very stoic appearance. She follows command appropriately. Moves all 4 extremities. SKIN: Visual inspection of her incision demonstrates her 2 SI screw sites to have 4 intact shirlene, little bit erythema, but no purulence. IMPRESSION: Postoperative day 12, right sacroiliac screw x2. PLAN: Continue current care. Recheck tomorrow. Follow incision. Job ID: [id number]
--- NOTE | 2019-04-01 10:50 | RAD ---
Portable frontal chest radiograph: 04/01/2019 COMPARISON: 03/29/2019 HISTORY: Reevaluate right-sided pneumothorax FINDINGS: Stable right vascular catheter, distal tip overlying the right atrium. Mild hazy density in the right lung base, stable. There is a small pneumothorax in the right lung apex, decreased in size when compared to the 03/29/2019 exam. Left lung appears clear. Incompletely imaged right-sided rib fractures are noted. IMPRESSION: Small residual right apical pneumothorax, decreased in size when compared to the prior ex amination.
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
[2019-04-01] MEDS: fentaNYL 50 mcg/hour Patch TD SCH (19:52)
[2019-04-02 05:08] LABS: Anion Gap 10 mmol/L (10-20); BUN (Urea Nitrogen) 13 mg/dL (7.0-18.7); Calc. Creatinine Clearance 159 mL/min (70-130); Calcium 8.7 mg/dL (7.8-10.44); Carbon Dioxide 27 mmol/L (22-29); Chloride 102 mmol/L (98-107); Estimated GFR-MDRD Greater than 90; Glucose 118 mg/dL (70-105); Magnesium 1.8 mg/dL (1.6-2.6); Phosphorus 3.7 mg/dL (2.3-4.7); Potassium 3.7 mmol/L (3.5-5.1); Sodium 135 mmol/L (136-145)
[2019-04-02] MEDS: Senokot S 8.6-50 MG TAB PO SCH ×2 (08:38→20:44)
[2019-04-02] MEDS: Ascorbic Acid 500 mg Chewable Tablet PO SCH (08:38)
[2019-04-02] MEDS: Ferrous Sulfate 325 MG TAB PO SCH ×2 (08:38→16:01)
[2019-04-02] MEDS: Polyethylene Glycol 3350 17 GM Packet PO SCH (08:38)
[2019-04-02] MEDS: Dextrose 5 %-0.45 % NaCl 1,000 ML IV SCH ×2 (15:40→23:32)
[2019-04-02] MEDS: Morphine 2 MG/ML SYRINGE SLOW IVP PRN (15:40)
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
[2019-04-03] MEDS: Morphine 2 MG/ML SYRINGE SLOW IVP PRN ×3 (04:14→19:49)
[2019-04-03] MEDS ORDERED: CEFAZOLIN 2 GM in Premix Bag 1 BAG IVPB SCH (06:00)
[2019-04-03] MEDS: Dextrose 5 %-0.45 % NaCl 1,000 ML IV SCH ×2 (06:12→13:39)
[2019-04-03] MEDS: Ferrous Sulfate 325 MG TAB PO SCH ×2 (08:48→15:16)
[2019-04-03] MEDS: Polyethylene Glycol 3350 17 GM Packet PO SCH (08:49)
[2019-04-03] MEDS: Senokot S 8.6-50 MG TAB PO SCH ×2 (08:49→19:51)
[2019-04-03] MEDS: Ascorbic Acid 500 mg Chewable Tablet PO SCH (08:49)
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
[2019-04-03] MEDS ORDERED: Iothalamate Meglumine 60% 50 ML VIAL FS ONE (16:50)
[2019-04-04] MEDS: Dextrose 5 %-0.45 % NaCl 1,000 ML IV SCH ×4 (00:09→23:43)
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
[2019-04-04] MEDS: Morphine 2 MG/ML SYRINGE SLOW IVP PRN ×3 (06:25→19:07)
[2019-04-04] MEDS: Polyethylene Glycol 3350 17 GM Packet PO SCH (10:50)
[2019-04-04] MEDS: Senokot S 8.6-50 MG TAB PO SCH ×2 (10:50→20:30)
[2019-04-04] MEDS: Ascorbic Acid 500 mg Chewable Tablet PO SCH (10:50)
[2019-04-04] MEDS: Ferrous Sulfate 325 MG TAB PO SCH ×2 (12:12→17:42)
[2019-04-04] MEDS ORDERED: traMADol HCl 50 MG TAB PO PRN (13:00)
[2019-04-04] MEDS ORDERED: Acetaminophen 500 MG TAB PO PRN (13:02)
[2019-04-04] MEDS ORDERED: Acetaminophen 1,000 MG in Premix Bag 1 BAG IVPB SCH (14:30)
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
--- NOTE | 2019-04-04 17:09 | ULT ---
Venous duplex sonogram bilateral lower extremity HISTORY: Bilateral leg pain and edema. Each common femoral vein and greater saphenous junction, femoral and deep femoral vein, popliteal and posterior tibial vein were evaluated. There is good color and spectral Doppler flow and compression. IMPRESSION: No sonographic evidence of DVT within either lower extremity.
[2019-04-04] MEDS: fentaNYL 50 mcg/hour Patch TD SCH (20:29)
[2019-04-05] MEDS ORDERED: Acetaminophen 325 MG Suppository PR PRN (03:58)
[2019-04-05] MEDS ORDERED: Acetaminophen 1,000 MG in Premix Bag 1 BAG IVPB SCH ×2 (04:15→16:30)
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
[2019-04-05 04:57] LABS: #Eosinphils 0.1 thou/uL (0.0-0.7); #Lymphocytes 1.7 thou/uL (1.20-3.40); #Monocytes 0.8 thou/uL (0.11-0.59); #Neutrophils 4.4 thou/uL (1.40-6.50); %Basophils 0.7 % (0.0-1.0); %Eosinophils 1.1 % (0.0-10.0); %Lymphocytes 23.8 % (21.0-51.0); %Monocytes 11.2 % (0.0-10.0); %Neutrophils 63.1 % (42.0-75.0); Hemoglobin 9.8 g/dL (12.0-16.0); Mean Corpuscular HGB CONC 32.4 g/dL (32.0-36.0); Mean Corpuscular Hemoglobin 30.1 pg (27.0-31.0); Mean Corpuscular Volume 92.7 fL (78.0-98.0); Mean Platelet Volume 6.4 fL (7.4-10.4); Platelet Count 376 thou/uL (130-400); RBC Distribution Width 13.2 % (11.5-14.5); Red Blood Cell (RBC) Count 3.27 mill/uL (4.20-5.40)
[2019-04-05 05:16] LABS: Anion Gap 12 mmol/L (10-20); BUN (Urea Nitrogen) 6 mg/dL (7.0-18.7); Calc. Creatinine Clearance 142 mL/min (70-130); Calcium 8.9 mg/dL (7.8-10.44); Carbon Dioxide 24 mmol/L (22-29); Chloride 102 mmol/L (98-107); Estimated GFR-MDRD Greater than 90; Glucose 105 mg/dL (70-105); Magnesium 1.8 mg/dL (1.6-2.6); Potassium 3.7 mmol/L (3.5-5.1); Sodium 134 mmol/L (136-145)
[2019-04-05 05:36] LABS: Bilirubin Small (Negative); Blood, Urine Large (Negative); Clarity CLOUDY (Clear); Glucose, Urine (Dipstick) Negative (Negative); Leukocyte Moderate (Negative); Nitrite Positive (Negative); Protein, Urine (Dipstick) 100 mg/dL (Neg-Trace); Specific Gravity, Urine 1.017 (1.002-1.036); Urobilinogen > or = 8.0 mg/dL (0.2-1.0)
[2019-04-05 05:38] LABS: Hyaline Casts/LPF 0-3 HYALINE CAST LPF (0-3 Hyaline); Pathc Cast-AUWi Flag 0.13 (0-2.49); Squamous Epithelial None Seen HPF (0-3)
[2019-04-05 05:40] LABS: Yeast-AUWi Flag 122.4 (0-25.0)
[2019-04-05 05:59] LABS: RBC/HPF GREATER THAN 50-TNTC HPF (0-3)
[2019-04-05 06:00] LABS: Bacteria/HPF Rare-Few HPF (None Seen); Renal Epithelial 0-3 HPF (0-3); WBC/HPF 21-50 HPF (0-3); Yeast-All Forms Rare HPF (None Seen)
--- NOTE | 2019-04-05 07:00 | RAD ---
CHEST ONE VIEW: INDICATIONS: Fever. COMPARISON: 04/01/2019 FINDINGS: The right-sided pneumothorax is no longer identified. The right subclavian central venous catheter h as been removed. The lungs are clear. The heart size is normal. The ununited right posterolateral 9th rib fracture is stable. Nondisplaced right lateral 8th rib fracture is stable. IMPRESSION: 1. Resolution of small right apical pneumothorax. 2. Interval removal of right subclavian central venous catheter. 3. Stable right-sided rib fracture. POS: BH
[2019-04-05] MEDS ORDERED: Potassium Phosphate 15 MMOL in Sodium Chloride 0.9% 250 ML 250 ML IVPB SCH (07:30)
[2019-04-05] MEDS ORDERED: Magnesium 2 GM/50 ML 2 GM in Premix Bag 1 BAG IVPB SCH (07:30)
[2019-04-05] MEDS: Dextrose 5 %-0.45 % NaCl 1,000 ML IV SCH ×3 (07:55→22:02)
[2019-04-05] MEDS: Polyethylene Glycol 3350 17 GM Packet PO SCH (08:04)
[2019-04-05] MEDS: Senokot S 8.6-50 MG TAB PO SCH ×2 (08:04→19:56)
[2019-04-05] MEDS: Ferrous Sulfate 325 MG TAB PO SCH ×2 (08:04→15:50)
[2019-04-05] MEDS: Ascorbic Acid 500 mg Chewable Tablet PO SCH (08:04)
[2019-04-05] MEDS: Morphine 2 MG/ML SYRINGE SLOW IVP PRN ×3 (09:23→22:01)
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
--- NOTE | 2019-04-05 16:19 | PRG ---
DATE OF SERVICE: 04/05/2019 SUBJECTIVE: The patient is seen this morning lying in bed with no signs of acute distress. Overnight, the patient did have a T-max of 101.4, for which she received 1 g of Ofirmev IV and then p.r.n. Tylenol per rectal. The patient is refusing to participate with incentive spirometry. Blood and urine cultures were also drawn at that time. Chest x-ray completed as well. The patient this morning appears nontoxic. She does not have any complaints, but also was not verbally responding to any part of the medical interview. Initially, she would nod yes or no, but long-term through the interview, she stopped participating at all and would just stare at the interviewer. Nursing reported no acute pain and that she has been tolerating a regular diet. The patient is seen and evaluated by Dr. Holman this morning. OBJECTIVE: VITAL SIGNS: Temperature 98.3, pulse 79, respirations 16, oxygen saturation 98% on room air, blood pressure 100/65. GENERAL: Well-appearing young female, sitting up in bed with no signs of acute distress. CARDIAC: Regular rate and rhythm. No murmurs, gallops, or rubs. PULMONARY: Equal chest rise and fall. Clear breath sounds bilaterally. No signs of acute distress. GI: Abdomen is soft, nontender, and nondistended. PELVIS: Ex-fix in place with very minimal erythema around the pin sites. No purulent discharge. No signs of infection. : Torres in place to wall suction with improving hematuria. EXTREMITIES: 2+ pulses in all extremities. No significant swelling noted. Gross motor and sensation intact in all extremities. LABORATORY FINDINGS: White count 7.0, hemoglobin 9.8, hematocrit 30.3, platelets 376. Sodium 134, potassium 3.7, chloride 102, carbon dioxide 24, BUN 6, creatinine 0.66. Phosphorus 3.0. Magnesium 2.8. DIAGNOSTIC FINDINGS: Chest x-ray completed this morning demonstrates resolution of small right apical pneumothorax, interval removal of right subclavian central venous catheter, stable right-sided rib fractures. ASSESSMENT: 1. Right C6 laminar fracture. 2. Right pneumothorax, resolved. 3. Right ribs 1 through 8 fracture. 4. Grade 2 liver laceration. 5. Grade 4 right kidney laceration. 6. Right adrenal hemorrhage. 7. Bladder rupture, status post repair. 8. Left ureter transection, status post repair. 9. Multiple pelvic fractures with displacement, status post ex-fix. 10. L2 through L4 spinous process fracture, L4-L5 right transverse process fracture. 11. Right-sided urinoma, stable. 12. Hematuria, improved. 13. Fever overnight. PLAN: The patient is refusing multiple aspects of her care including her C-collar and further evaluation by Dr. Holman. It is unclear if the patient has capacity to refuse these things as previously she has. The patient intermittently participates in care and is participatory in the interview. We did consult Dr. Hua Mercado, who is a psychiatrist to help the team determine if the patient is competent. The patient's mother is also trying to obtain guardianship for the patient to make decisions. Her machine hoop maker have stated that they do need a healthcare provider to determine that the patient is not competent, and this is why we have asked Dr. Mercado to see the patient. At this time, we will continue to provide the patient with supportive care as well as physical and occupational therapy. We will follow up blood and urine cultures drawn overnight. Also, we will replace magnesium, potassium, and phosphorus. The patient was seen and evaluated by myself and discussed with Dr. Ramirez this morning before rounds. Job ID: [id number]
[2019-04-06] MEDS: Acetaminophen 1,000 MG in Premix Bag 1 BAG IVPB PRN ×3 (00:08→23:34)
[2019-04-06] MEDS: Morphine 2 MG/ML SYRINGE SLOW IVP PRN ×4 (04:34→23:33)
[2019-04-06 06:05] LABS: Anion Gap 11 mmol/L (10-20); BUN (Urea Nitrogen) 7 mg/dL (7.0-18.7); Calc. Creatinine Clearance 165 mL/min (70-130); Calcium 8.8 mg/dL (7.8-10.44); Carbon Dioxide 27 mmol/L (22-29); Chloride 100 mmol/L (98-107); Estimated GFR-MDRD Greater than 90; Glucose 107 mg/dL (70-105); Magnesium 1.8 mg/dL (1.6-2.6); Phosphorus 3.8 mg/dL (2.3-4.7); Potassium 3.9 mmol/L (3.5-5.1); Sodium 134 mmol/L (136-145)
[2019-04-06 06:06] LABS: Band 13 % (5-11); Eosinophils 1 % (0-10); Hemoglobin 9.7 g/dL (12.0-16.0); Lymphocytes 26 % (21-51); MDiff Complete? YES; Mean Corpuscular HGB CONC 32.8 g/dL (32.0-36.0); Mean Corpuscular Hemoglobin 30.2 pg (27.0-31.0); Mean Platelet Volume 6.5 fL (7.4-10.4); Monocytes 11 % (0-10); Neutrophil 49 % (42-75); Platelet Count 300 thou/uL (130-400); Platelet Morphology Comment Appears Adequate; RBC Distribution Width 13.2 % (11.5-14.5); White Blood Cell (WBC) Count 4.9 thou/uL (4.8-10.8)
[2019-04-06] MEDS: Dextrose 5 %-0.45 % NaCl 1,000 ML IV SCH ×3 (06:48→23:34)
[2019-04-06] MEDS: Ascorbic Acid 500 mg Chewable Tablet PO SCH (09:12)
[2019-04-06] MEDS: Ferrous Sulfate 325 MG TAB PO SCH ×2 (09:12→16:56)
[2019-04-06] MEDS: Polyethylene Glycol 3350 17 GM Packet PO SCH (09:13)
[2019-04-06] MEDS: Senokot S 8.6-50 MG TAB PO SCH ×2 (09:14→21:18)
[2019-04-06] MEDS: CEFAZOLIN 2 GM in Premix Bag 1 BAG IVPB SCH ×2 (14:27→21:15)
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
[2019-04-07] MEDS: CEFAZOLIN 2 GM in Premix Bag 1 BAG IVPB SCH ×3 (05:39→21:58)
[2019-04-07] MEDS: Morphine 2 MG/ML SYRINGE SLOW IVP PRN ×3 (06:38→20:22)
[2019-04-07] MEDS: Ferrous Sulfate 325 MG TAB PO SCH ×2 (10:23→18:46)
[2019-04-07] MEDS: Ascorbic Acid 500 mg Chewable Tablet PO SCH (10:24)
[2019-04-07] MEDS: Senokot S 8.6-50 MG TAB PO SCH ×2 (10:25→20:22)
[2019-04-07] MEDS: Polyethylene Glycol 3350 17 GM Packet PO SCH (10:25)
[2019-04-07] MEDS: Dextrose 5 %-0.45 % NaCl 1,000 ML IV SCH ×3 (10:26→20:20)
--- NOTE | 2019-04-07 11:03 | RAD ---
Inlet and outlet views of the pelvis INDICATION: Pelvic fractures COMPARISON: Prior regress of the pelvis dated March 20, 2019 IMPRESSION: SI joint arthrodesis screws and external fixator pins are unchanged. There are bilateral ureteral stents. The obturator ring fractures are unchanged in position and demonstrate evidence of some interval healing. Proximal femurs appear within normal limits.
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
[2019-04-07] MEDS ORDERED: Acetaminophen 1,000 MG in Premix Bag 1 BAG IVPB SCH (18:00)
[2019-04-07] MEDS: fentaNYL 50 mcg/hour Patch TD SCH (19:52)
[2019-04-07] MEDS: Acetaminophen 1,000 MG in Premix Bag 1 BAG IVPB SCH (21:58)
[2019-04-08] MEDS: Acetaminophen 1,000 MG in Premix Bag 1 BAG IVPB SCH ×3 (04:15→15:05)
[2019-04-08] MEDS: CEFAZOLIN 2 GM in Premix Bag 1 BAG IVPB SCH ×2 (06:00→13:46)
[2019-04-08] MEDS: Morphine 2 MG/ML SYRINGE SLOW IVP PRN ×2 (06:09→15:01)
[2019-04-08] MEDS: Dextrose 5 %-0.45 % NaCl 1,000 ML IV SCH ×2 (07:50→17:13)
[2019-04-08] MEDS: Senokot S 8.6-50 MG TAB PO SCH ×2 (07:53→22:42)
[2019-04-08] MEDS: Ascorbic Acid 500 mg Chewable Tablet PO SCH (07:53)
[2019-04-08] MEDS: Polyethylene Glycol 3350 17 GM Packet PO SCH (07:53)
[2019-04-08] MEDS: Ferrous Sulfate 325 MG TAB PO SCH ×2 (07:53→15:10)
[2019-04-08] MEDS ORDERED: PHENYLEPHRINE-NS 100 MCG/ML 10 ML SYRINGE ONE (09:28)
[2019-04-08] MEDS ORDERED: Ondansetron PF 4 MG/2 ML Vial ONE (09:28)
[2019-04-08] MEDS ORDERED: Lidocaine 1% PF 5 ML VIAL ONE (09:28)
[2019-04-08] MEDS ORDERED: PROPOFOL 200 MG/20 ML VIAL ONE (09:28)
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
[2019-04-08] MEDS ORDERED: Iothalamate Meglumine 60% 50 ML VIAL FS ONE (20:14)
[2019-04-08] MEDS ORDERED: Midazolam HCl 2 mg/2 ml Vial ONE (20:20)
[2019-04-08] MEDS ORDERED: Fentanyl 100 MCG/2 ML VIAL ONE (20:20)
[2019-04-08] MEDS ORDERED: B & O ONE (22:59)
[2019-04-08] MEDS ORDERED: Fluconazole In NaCl,Iso-Osm 200 MG in Premix Bag 1 BAG IVPB SCH (23:00)
--- NOTE | 2019-04-08 23:06 | RAD ---
Retrograde pyelogram: 04/08/2019 COMPARISON: None available HISTORY: Stent exchange. FINDINGS: 4 images are provided. Images demonstrate contrast media within the renal collecting system on the right with extravasation from the region of an upper pole calyx into the perinephric region. There is contrast media within the renal collecting system on the left as well. Double-J uret eral stents are present bilaterally on the final image. IMPRESSION: Bilateral double-J ureteral stent placement. Contrast extravasation from upper pole right renal collecting system, as seen on prior CT abdomen pelvis performed 03/26/2019
[2019-04-09] MEDS: Dextrose 5 %-0.45 % NaCl 1,000 ML IV SCH ×3 (00:13→14:31)
[2019-04-09] MEDS: Morphine 2 MG/ML SYRINGE SLOW IVP PRN ×6 (00:19→21:44)
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
[2019-04-09] MEDS ORDERED: Acetaminophen 1,000 MG in Premix Bag 1 BAG IVPB SCH (04:00)
[2019-04-09] MEDS ORDERED: Acetaminophen 1,000 MG in Premix Bag 1 BAG IVPB PRN (08:15)
[2019-04-09] MEDS: Polyethylene Glycol 3350 17 GM Packet PO SCH (08:21)
[2019-04-09] MEDS: Ferrous Sulfate 325 MG TAB PO SCH ×2 (08:21→15:19)
[2019-04-09] MEDS: Senokot S 8.6-50 MG TAB PO SCH ×2 (08:21→21:45)
[2019-04-09] MEDS: Ascorbic Acid 500 mg Chewable Tablet PO SCH (08:21)
[2019-04-09 08:51] LABS: #Eosinphils 0.1 thou/uL (0.0-0.7); #Lymphocytes 0.8 thou/uL (1.20-3.40); #Monocytes 0.5 thou/uL (0.11-0.59); #Neutrophils 2.6 thou/uL (1.40-6.50); %Basophils 0.9 % (0.0-1.0); %Eosinophils 2.7 % (0.0-10.0); %Lymphocytes 19.7 % (21.0-51.0); %Monocytes 11.3 % (0.0-10.0); %Neutrophils 65.4 % (42.0-75.0); Hemoglobin 8.9 g/dL (12.0-16.0); Mean Corpuscular HGB CONC 33.7 g/dL (32.0-36.0); Mean Corpuscular Hemoglobin 30.4 pg (27.0-31.0); Mean Corpuscular Volume 90.4 fL (78.0-98.0); Mean Platelet Volume 6.9 fL (7.4-10.4); Platelet Count 247 thou/uL (130-400); RBC Distribution Width 13.9 % (11.5-14.5); Red Blood Cell (RBC) Count 2.92 mill/uL (4.20-5.40)
[2019-04-09 09:04] LABS: Anion Gap 11 mmol/L (10-20); BUN (Urea Nitrogen) 5 mg/dL (7.0-18.7); Calc. Creatinine Clearance 168 mL/min (70-130); Calcium 8.7 mg/dL (7.8-10.44); Carbon Dioxide 26 mmol/L (22-29); Chloride 105 mmol/L (98-107); Estimated GFR-MDRD Greater than 90; Glucose 113 mg/dL (70-105); Magnesium 1.6 mg/dL (1.6-2.6); Phosphorus 3.8 mg/dL (2.3-4.7); Potassium 3.6 mmol/L (3.5-5.1); Sodium 138 mmol/L (136-145)
[2019-04-09] MEDS ORDERED: Potassium Phosphate 15 MMOL in Sodium Chloride 0.9% 250 ML 250 ML IVPB SCH (13:30)
[2019-04-09] MEDS ORDERED: Magnesium 2 GM/50 ML 2 GM in Premix Bag 1 BAG IVPB SCH (13:30)
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
[2019-04-09] MEDS: Bacitracin Zinc 1 Packet TOP SCH (21:45)
[2019-04-10] MEDS: Dextrose 5 %-0.45 % NaCl 1,000 ML IV SCH ×3 (02:11→17:22)
[2019-04-10] MEDS: Morphine 2 MG/ML SYRINGE SLOW IVP PRN ×5 (02:11→21:26)
[2019-04-10] MEDS ORDERED: Potassium Phosphate 15 MMOL in Sodium Chloride 0.9% 250 ML 250 ML IVPB SCH (07:30)
[2019-04-10] MEDS ORDERED: Magnesium 2 GM/50 ML 2 GM in Premix Bag 1 BAG IVPB SCH (07:30)
[2019-04-10] MEDS: Bacitracin Zinc 1 Packet TOP SCH ×2 (08:37→21:27)
[2019-04-10] MEDS: Ferrous Sulfate 325 MG TAB PO SCH ×2 (08:37→17:00)
[2019-04-10] MEDS: Ascorbic Acid 500 mg Chewable Tablet PO SCH (08:37)
[2019-04-10] MEDS: Polyethylene Glycol 3350 17 GM Packet PO SCH (08:38)
[2019-04-10] MEDS: Senokot S 8.6-50 MG TAB PO SCH ×2 (08:39→21:28)
[2019-04-10] MEDS: Enoxaparin Sodium 40 MG/0.4 ML SYRINGE SC SCH (11:28)
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
[2019-04-10] MEDS: fentaNYL 50 mcg/hour Patch TD SCH (21:27)
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
[2019-04-11] MEDS: Morphine 2 MG/ML SYRINGE SLOW IVP PRN ×4 (04:02→18:37)
[2019-04-11] MEDS: Dextrose 5 %-0.45 % NaCl 1,000 ML IV SCH ×4 (04:05→19:49)
--- NOTE | 2019-04-11 09:39 | ULT ---
ULTRASOUND WITH DOPPLER DUPLEX VENOUS LOWER EXTREMITY BILATERAL: CPT: 18662 ICD-10-PCS: B54D COMPARISON: 04/04/2019. HISTORY: Edema. Screening imaging in the absence of anticoagulant therapy. TECHNIQUE: Color flow Doppler, spectral waveform analysis of pulsed Doppler, and ruano-scale imaging with osmin fabian and augmentation, were used to evaluate the bilateral common femoral, femoral, popliteal, transportation consultant ior tibial, and superficial femoral, veins; and the proximal portions of the profunda femoral and gre ater saphenous, veins. FINDINGS: There is appropriate compressibility and flow within the imaged deep vein system of each lower extrem ity. IMPRESSION: No deep vein thrombosis of the visualized bilateral lower extremities. POS: TPC
[2019-04-11] MEDS: Fluconazole In NaCl,Iso-Osm 200 MG in Premix Bag 1 BAG IVPB SCH (09:41)
[2019-04-11] MEDS: Bacitracin Zinc 1 Packet TOP SCH ×2 (09:42→19:50)
[2019-04-11] MEDS: Ferrous Sulfate 325 MG TAB PO SCH ×2 (09:43→17:39)
[2019-04-11] MEDS: Polyethylene Glycol 3350 17 GM Packet PO SCH (09:43)
[2019-04-11] MEDS: Senokot S 8.6-50 MG TAB PO SCH ×2 (09:43→19:50)
[2019-04-11] MEDS: Enoxaparin Sodium 40 MG/0.4 ML SYRINGE SC SCH (09:43)
[2019-04-11] MEDS: Ascorbic Acid 500 mg Chewable Tablet PO SCH (09:43)
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
[2019-04-12] MEDS: Morphine 2 MG/ML SYRINGE SLOW IVP PRN ×4 (05:58→21:10)
[2019-04-12] MEDS: Dextrose 5 %-0.45 % NaCl 1,000 ML IV SCH ×3 (05:58→22:27)
[2019-04-12] MEDS: Fluconazole In NaCl,Iso-Osm 200 MG in Premix Bag 1 BAG IVPB SCH (08:59)
[2019-04-12] MEDS: Ferrous Sulfate 325 MG TAB PO SCH ×2 (08:59→18:26)
[2019-04-12] MEDS: Enoxaparin Sodium 40 MG/0.4 ML SYRINGE SC SCH (08:59)
[2019-04-12] MEDS: Polyethylene Glycol 3350 17 GM Packet PO SCH (08:59)
[2019-04-12] MEDS: Ascorbic Acid 500 mg Chewable Tablet PO SCH (08:59)
[2019-04-12] MEDS: Senokot S 8.6-50 MG TAB PO SCH ×2 (08:59→21:13)
[2019-04-12] MEDS: Bacitracin Zinc 1 Packet TOP SCH ×2 (08:59→21:12)
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
[2019-04-13] MEDS: Dextrose 5 %-0.45 % NaCl 1,000 ML IV SCH ×3 (06:10→23:30)
[2019-04-13] MEDS: Morphine 2 MG/ML SYRINGE SLOW IVP PRN ×3 (07:27→23:34)
[2019-04-13] MEDS: Ferrous Sulfate 325 MG TAB PO SCH ×3 (09:36→15:51)
[2019-04-13] MEDS: Ascorbic Acid 500 mg Chewable Tablet PO SCH ×2 (09:36→10:29)
[2019-04-13] MEDS: Fluconazole In NaCl,Iso-Osm 200 MG in Premix Bag 1 BAG IVPB SCH (09:37)
[2019-04-13] MEDS: Bacitracin Zinc 1 Packet TOP SCH ×2 (09:37→21:34)
[2019-04-13] MEDS: Enoxaparin Sodium 40 MG/0.4 ML SYRINGE SC SCH ×2 (09:37→10:29)
[2019-04-13] MEDS: Polyethylene Glycol 3350 17 GM Packet PO SCH ×2 (09:37→10:29)
[2019-04-13] MEDS: Senokot S 8.6-50 MG TAB PO SCH ×3 (09:46→21:34)
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
[2019-04-13] MEDS: fentaNYL 50 mcg/hour Patch TD SCH (21:20)
[2019-04-14 04:57] LABS: #Eosinphils 0.4 thou/uL (0.0-0.7); #Lymphocytes 2.2 thou/uL (1.20-3.40); #Monocytes 0.6 thou/uL (0.11-0.59); #Neutrophils 5.3 thou/uL (1.40-6.50); %Basophils 0.2 % (0.0-1.0); %Eosinophils 4.7 % (0.0-10.0); %Lymphocytes 26.4 % (21.0-51.0); %Monocytes 6.7 % (0.0-10.0); Hemoglobin 9.2 g/dL (12.0-16.0); Mean Corpuscular HGB CONC 32.3 g/dL (32.0-36.0); Mean Corpuscular Hemoglobin 29.8 pg (27.0-31.0); Mean Corpuscular Volume 92.3 fL (78.0-98.0); Mean Platelet Volume 6.4 fL (7.4-10.4); Platelet Count 391 thou/uL (130-400); RBC Distribution Width 14.7 % (11.5-14.5); Red Blood Cell (RBC) Count 3.07 mill/uL (4.20-5.40); White Blood Cell (WBC) Count 8.5 thou/uL (4.8-10.8)
[2019-04-14 05:14] LABS: Anion Gap 10 mmol/L (10-20); BUN (Urea Nitrogen) Less than 4 mg/dL (7.0-18.7); Calc. Creatinine Clearance 165 mL/min (70-130); Carbon Dioxide 28 mmol/L (22-29); Chloride 104 mmol/L (98-107); Estimated GFR-MDRD Greater than 90; Potassium 3.7 mmol/L (3.5-5.1); Sodium 138 mmol/L (136-145)
[2019-04-14 05:15] LABS: Calcium 8.8 mg/dL (7.8-10.44); Glucose 100 mg/dL (70-105); Magnesium 1.7 mg/dL (1.6-2.6); Phosphorus 4.2 mg/dL (2.3-4.7)
[2019-04-14] MEDS ORDERED: Magnesium 2 GM/50 ML 2 GM in Premix Bag 1 BAG IVPB SCH (07:30)
[2019-04-14] MEDS ORDERED: Potassium Chloride 20 MEQ/100 ML PREMIX BAG IVPB SCH (08:00)
[2019-04-14] MEDS: Dextrose 5 %-0.45 % NaCl 1,000 ML IV SCH ×3 (09:13→21:46)
[2019-04-14] MEDS: Fluconazole In NaCl,Iso-Osm 200 MG in Premix Bag 1 BAG IVPB SCH (09:13)
[2019-04-14] MEDS: Ferrous Sulfate 325 MG TAB PO SCH ×2 (09:16→17:27)
[2019-04-14] MEDS: Ascorbic Acid 500 mg Chewable Tablet PO SCH (09:18)
[2019-04-14] MEDS: Enoxaparin Sodium 40 MG/0.4 ML SYRINGE SC SCH (09:18)
[2019-04-14] MEDS: Polyethylene Glycol 3350 17 GM Packet PO SCH (09:19)
[2019-04-14] MEDS: Senokot S 8.6-50 MG TAB PO SCH ×2 (09:19→21:46)
[2019-04-14] MEDS: Bacitracin Zinc 1 Packet TOP SCH ×2 (09:33→21:45)
[2019-04-14] MEDS: Morphine 2 MG/ML SYRINGE SLOW IVP PRN ×3 (09:33→21:56)
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
[2019-04-15] MEDS: Dextrose 5 %-0.45 % NaCl 1,000 ML IV SCH ×3 (06:38→22:10)
--- NOTE | 2019-04-15 09:35 | CT ---
CT ABDOMEN AND PELVIS WITH AND WITHOUT IV CONTRAST: HISTORY: Renal fracture. Urinoma. Bladder rupture. Follow-up. COMPARISON: 03/26/2019. FINDINGS: Mild residual atelectasis at the right posterior lung base. Rib fractures, lumbar spine fractures, pe lvic fractures, and internal fixation of the pelvis are similar in appearance to the previous exam. Intrauterine contraceptive device in place. Urinary bladder decompressed by a Torres catheter. It cont ains the distal coil of bilateral ureteral stents and small amount of gas. Fecal distention of the rectum. Bilateral ureteral stents are in place. Left ureteral stent is in good position, draining the left re nal excretion. Tiny stones within nondilated left renal calyces and within the right superior perinephric urinoma are stable. The proximal coil of the right ureteral stent extends just superior to the left renal collecting syst em, centered within the central portion of a well encapsulated fluid density irregular shaped collection that is somewhat lobulated. It measures up to 8.1 cm length by 4.2 cm x 3.1 cm diameters o n the axial images. The superior margin extends high into Morison's pouch. On the delayed images, right renal excreted contrast is present within the nondilated right renal calyces and pelvis and the right ureter. The extraparenchymal encapsulated fluid collection superior to the right kidney that contains the proximal coil of the ureteral stent contains a very small amount of hyperdense fluid on the delayed images that is not present on the earlier phases. Best seen on the coronal reformatted images.. Minimal additional right perinephric fluid. Oblique fracture through the inferior pole of the right [place] is again demonstrated. IMPRESSION: 1. Decrease in size of partially collapsed right superior renal posttraumatic urinoma. The proximal coil of the right ureteral stent is centered within the urinoma. Each renal collecting system and ureter are decompressed. 2. Right renal fracture and other posttraumatic findings of the abdomen/pelvis are stable. Transcribed Date/Time: 04/15/2019 9:41 AM
[2019-04-15] MEDS: Bacitracin Zinc 1 Packet TOP SCH ×2 (09:36→20:19)
[2019-04-15] MEDS: Fluconazole In NaCl,Iso-Osm 200 MG in Premix Bag 1 BAG IVPB SCH (09:36)
[2019-04-15] MEDS: Senokot S 8.6-50 MG TAB PO SCH ×2 (09:37→20:20)
[2019-04-15] MEDS: Enoxaparin Sodium 40 MG/0.4 ML SYRINGE SC SCH (09:37)
[2019-04-15] MEDS: Polyethylene Glycol 3350 17 GM Packet PO SCH (09:37)
[2019-04-15] MEDS: Ascorbic Acid 500 mg Chewable Tablet PO SCH (09:37)
[2019-04-15] MEDS: Ferrous Sulfate 325 MG TAB PO SCH ×2 (09:37→18:29)
[2019-04-15] MEDS: Morphine 2 MG/ML SYRINGE SLOW IVP PRN ×2 (10:09→18:30)
[2019-04-15] MEDS ORDERED: CEFAZOLIN 2 GM in Premix Bag 1 BAG IVPB SCH (13:00)
[2019-04-15] MEDS ORDERED: PHENYLEPHRINE-NS 100 MCG/ML 10 ML SYRINGE ONE (13:15)
[2019-04-15] MEDS ORDERED: PROPOFOL 200 MG/20 ML VIAL ONE (13:15)
[2019-04-15] MEDS ORDERED: Dexamethasone 20 MG/5 ML VIAL ONE (13:15)
[2019-04-15] MEDS ORDERED: diphenhydrAMINE 50 MG/ML VIAL ONE (13:15)
[2019-04-15] MEDS ORDERED: Lidocaine 1% PF 5 ML VIAL ONE (13:15)
[2019-04-15] MEDS ORDERED: ePHEDrine 50 MG/ML VIAL ONE (13:15)
[2019-04-15] MEDS ORDERED: Glycopyrrolate 0.2 MG/ML 5 ML SYRINGE ONE (13:15)
[2019-04-15] MEDS ORDERED: Metoclopramide HCl 10 MG/2 ML VIAL ONE (13:15)
[2019-04-15] MEDS ORDERED: Ondansetron PF 4 MG/2 ML Vial ONE (13:15)
[2019-04-15] MEDS ORDERED: Rocuronium Bromide 10 MG/ML (10ML VIAL) ONE (13:15)
[2019-04-15] MEDS ORDERED: Iothalamate Meglumine 60% 50 ML VIAL FS ONE (13:27)
[2019-04-15] MEDS ORDERED: Fentanyl 100 MCG/2 ML VIAL ONE (13:55)
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
[2019-04-15] MEDS ORDERED: Midazolam HCl 2 mg/2 ml Vial ONE (14:28)
--- NOTE | 2019-04-15 17:32 | RAD ---
FOUR FLUOROSCOPIC SPOT IMAGES FROM AN IVP RETROGRADE: Comparison: CT abdomen/pelvis, 04-15-19. Indication: renal injury/urinoma FINDINGS: The first submitted images demonstrate partial visualization of the cystoscope and right ureteral cat heter within the right renal pelvis. There is moderate distention of the right renal collecting syste m with retrograde contrast. Mild extravasation is seen from a superior calyx. There are bilateral SI joint screws. There are bilateral obturator ring fractures. Bowel gas pattern is unobstructed. IUD i s seen within the lower central pelvis. Subsequent image demonstrates portions of the cystoscope and right ureteral catheter. There remains m oderate right sided hydronephrosis and mild extravasation noted from the collecting system. Subsequent images demonstrate that the stent has migrated slightly distally within the right ureter. There is continued moderate extravasation of contrast from a superior right renal deynaira into the surr ounding soft tissues of the right kidney. The cathater appears to be draped along the right aspect of the pelvis extending external to the patient right of midline. This does not follow the course of th e urethra. The course distal to the bladder cannot be entirely explained. IMPRESSION: IVP retrograde evaluation as above. POS: CET
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
[2019-04-16] MEDS: Dextrose 5 %-0.45 % NaCl 1,000 ML IV SCH ×3 (04:06→21:48)
[2019-04-16] MEDS: Morphine 2 MG/ML SYRINGE SLOW IVP PRN ×5 (04:15→22:01)
--- NOTE | 2019-04-16 08:00 | OP ---
DATE OF PROCEDURE: 04/15/2019 DIAGNOSIS: Pelvic fracture with ex-fix fixation. PROCEDURE PERFORMED: Removal of ex-fix. COMPLICATIONS: None. BLOOD LOSS: Minimal. DESCRIPTION OF PROCEDURE: Prepped the site with copious Betadine. The patient was already under general anesthesia for a pending procedure, cystoscopy. Spread off the external fixation, took a T-wrench for the pins, removed these, cleaned both wounds. Pin sites with copious Betadine and were dressed with Xeroform, Betadine, Tegaderm pad. Next, I also ordered wound care, she had had this in for some time and the pin sites looked like they needed some decent wound care and I will speak to the family about this tomorrow. Job ID: [id number]
[2019-04-16] MEDS: Fluconazole In NaCl,Iso-Osm 200 MG in Premix Bag 1 BAG IVPB SCH (08:43)
[2019-04-16] MEDS: Bacitracin Zinc 1 Packet TOP SCH ×2 (08:45→21:49)
[2019-04-16] MEDS: Enoxaparin Sodium 40 MG/0.4 ML SYRINGE SC SCH (08:45)
[2019-04-16] MEDS: Ascorbic Acid 500 mg Chewable Tablet PO SCH (08:45)
[2019-04-16] MEDS: Polyethylene Glycol 3350 17 GM Packet PO SCH (08:46)
[2019-04-16] MEDS: Senokot S 8.6-50 MG TAB PO SCH ×2 (08:46→21:50)
[2019-04-16] MEDS: Ferrous Sulfate 325 MG TAB PO SCH ×2 (08:46→17:10)
[2019-04-16] MEDS: fentaNYL 50 mcg/hour Patch TD SCH (22:00)
[2019-04-17] MEDS: Morphine 2 MG/ML SYRINGE SLOW IVP PRN ×5 (01:56→20:46)
[2019-04-17] MEDS: Dextrose 5 %-0.45 % NaCl 1,000 ML IV SCH ×4 (06:09→20:46)
[2019-04-17] MEDS: Polyethylene Glycol 3350 17 GM Packet PO SCH (08:18)
[2019-04-17] MEDS: Enoxaparin Sodium 40 MG/0.4 ML SYRINGE SC SCH (08:18)
[2019-04-17] MEDS: Bacitracin Zinc 1 Packet TOP SCH ×2 (08:19→20:50)
[2019-04-17] MEDS: Senokot S 8.6-50 MG TAB PO SCH ×2 (08:19→20:50)
[2019-04-17] MEDS: Ferrous Sulfate 325 MG TAB PO SCH ×2 (08:19→16:10)
[2019-04-17] MEDS: Ascorbic Acid 500 mg Chewable Tablet PO SCH (08:19)
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
[2019-04-17] MEDS: Ondansetron PF 4 MG/2 ML Vial IVP PRN (12:36)
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
[2019-04-18] MEDS: Morphine 2 MG/ML SYRINGE SLOW IVP PRN ×5 (02:42→23:52)
[2019-04-18] MEDS: Dextrose 5 %-0.45 % NaCl 1,000 ML IV SCH ×3 (02:46→20:58)
[2019-04-18] MEDS: Ferrous Sulfate 325 MG TAB PO SCH ×2 (08:42→16:43)
[2019-04-18] MEDS: Ascorbic Acid 500 mg Chewable Tablet PO SCH (08:44)
[2019-04-18] MEDS: Polyethylene Glycol 3350 17 GM Packet PO SCH (08:45)
[2019-04-18] MEDS: Enoxaparin Sodium 40 MG/0.4 ML SYRINGE SC SCH (08:45)
[2019-04-18] MEDS: Senokot S 8.6-50 MG TAB PO SCH ×2 (08:45→21:00)
[2019-04-18] MEDS: Bacitracin Zinc 1 Packet TOP SCH ×2 (08:47→21:00)
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
--- NOTE | 2019-04-18 09:20 | ULT ---
EXAM: Bilateral lower extremity venous duplex ultrasound with color and spectral Doppler imaging: HISTORY: Leg edema COMPARISON: 04/11/2019 FINDINGS: Exam performed from the groin to the ankle including the visualized greater saphenous, common femoral , superficial femoral, profunda femoral, popliteal, trifurcation, and posterior tibial veins. There is phasic flow with normal compressibility and normal augmentation at all examined levels. No evidence for intraluminal thrombus. IMPRESSION: No evidence for deep venous thrombosis.
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
[2019-04-18] MEDS: Ondansetron PF 4 MG/2 ML Vial IVP PRN (23:51)
[2019-04-19] MEDS: Dextrose 5 %-0.45 % NaCl 1,000 ML IV SCH ×2 (05:44→14:30)
[2019-04-19] MEDS: Morphine 2 MG/ML SYRINGE SLOW IVP PRN ×3 (09:32→17:32)
[2019-04-19] MEDS: Bacitracin Zinc 1 Packet TOP SCH ×2 (09:33→21:14)
[2019-04-19] MEDS: Ferrous Sulfate 325 MG TAB PO SCH ×2 (09:42→14:31)
[2019-04-19] MEDS: Ascorbic Acid 500 mg Chewable Tablet PO SCH (09:42)
[2019-04-19] MEDS: Enoxaparin Sodium 40 MG/0.4 ML SYRINGE SC SCH (09:42)
[2019-04-19] MEDS: Polyethylene Glycol 3350 17 GM Packet PO SCH (09:43)
[2019-04-19] MEDS: Senokot S 8.6-50 MG TAB PO SCH ×2 (09:43→21:14)
[2019-04-19] MEDS: Ondansetron PF 4 MG/2 ML Vial IVP PRN (17:33)
[2019-04-19 21:07] LABS: Fungus Stain Final report (.)
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
[2019-04-20] MEDS: Morphine 2 MG/ML SYRINGE SLOW IVP PRN ×6 (04:45→22:35)
[2019-04-20] MEDS: Polyethylene Glycol 3350 17 GM Packet PO SCH (09:02)
[2019-04-20] MEDS: Senokot S 8.6-50 MG TAB PO SCH ×2 (09:02→21:17)
[2019-04-20] MEDS: Ascorbic Acid 500 mg Chewable Tablet PO SCH (09:02)
[2019-04-20] MEDS: Ferrous Sulfate 325 MG TAB PO SCH ×3 (09:02→15:49)
[2019-04-20] MEDS: Enoxaparin Sodium 40 MG/0.4 ML SYRINGE SC SCH (09:03)
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
[2019-04-21] MEDS: Morphine 2 MG/ML SYRINGE SLOW IVP PRN ×6 (03:46→21:53)
[2019-04-21] MEDS: Ferrous Sulfate 325 MG TAB PO SCH ×2 (08:15→17:07)
[2019-04-21] MEDS: Enoxaparin Sodium 40 MG/0.4 ML SYRINGE SC SCH (10:01)
[2019-04-21] MEDS: Ascorbic Acid 500 mg Chewable Tablet PO SCH (10:02)
[2019-04-21] MEDS: Senokot S 8.6-50 MG TAB PO SCH ×2 (10:02→22:51)
[2019-04-21] MEDS: Polyethylene Glycol 3350 17 GM Packet PO SCH (10:02)
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
[2019-04-22] MEDS: Morphine 2 MG/ML SYRINGE SLOW IVP PRN ×5 (05:15→19:57)
[2019-04-22] MEDS: Ascorbic Acid 500 mg Chewable Tablet PO SCH (08:37)
[2019-04-22] MEDS: Ferrous Sulfate 325 MG TAB PO SCH ×2 (08:37→18:03)
[2019-04-22] MEDS: Polyethylene Glycol 3350 17 GM Packet PO SCH (08:37)
[2019-04-22] MEDS: Enoxaparin Sodium 40 MG/0.4 ML SYRINGE SC SCH (08:38)
[2019-04-22] MEDS: Senokot S 8.6-50 MG TAB PO SCH ×2 (08:38→21:32)
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
[2019-04-23] MEDS: Morphine 2 MG/ML SYRINGE SLOW IVP PRN ×6 (00:15→19:51)
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
[2019-04-23] MEDS: Enoxaparin Sodium 40 MG/0.4 ML SYRINGE SC SCH (07:32)
[2019-04-23] MEDS: Ferrous Sulfate 325 MG TAB PO SCH ×2 (07:32→18:03)
[2019-04-23] MEDS: Ascorbic Acid 500 mg Chewable Tablet PO SCH (07:32)
[2019-04-23] MEDS: Polyethylene Glycol 3350 17 GM Packet PO SCH ×2 (07:32→12:34)
[2019-04-23] MEDS: Senokot S 8.6-50 MG TAB PO SCH ×2 (07:33→20:15)
[2019-04-23] MEDS ORDERED: Iopamidol 300 61% 30 ML VIAL ONE (09:10)
[2019-04-23] MEDS ORDERED: Bisacodyl 10 MG SUPP PR PRN (10:45)
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
[2019-04-23] MEDS: cefTRIAXone\\ROCEPHIN 2 GM in Sodium Chloride 0.9% 100 ML IVPB SCH (19:52)
--- NOTE | 2019-04-23 20:57 | RAD ---
SUPINE ABDOMEN: Indications: Injury during injection of externalized right ureteral stent. This is a post drainage exam. FINDINGS/IMPRESSION: Residual contrast in the upper collecting structures on the right and right ureter. No evidence of ex travasation. POS: [facility]
--- NOTE | 2019-04-23 21:02 | RAD ---
SUPINE ABDOMEN: Indications: Imaging during injection through an externalized right ureteral stent to assess for extr avasation. FINDINGS/IMPRESSION: Proximal right ureter opacifies. Upper collecting structures opacify. No extravasation identified. POS: [facility]
--- NOTE | 2019-04-23 21:03 | RAD ---
SUPINE ABDOMEN: Indications: Imaging during injection of externalized right ureteral stent. FINDINGS/IMPRESSION: Proximal ureter opacifies. The upper collecting structures opacify. No extravasation. POS: [facility]
--- NOTE | 2019-04-23 21:04 | RAD ---
SUPINE ABDOMEN: Indications: Imaging during stent injection. FINDINGS: Radiopaque contrast is injected through an indwelling externalized right ureteral stent. Ureter parti ally opacifies. There is contrast seen in the upper collecting structures surrounding the proximal pi gtail. POS: [facility]
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
[2019-04-24] MEDS: Morphine 2 MG/ML SYRINGE SLOW IVP PRN ×8 (04:48→23:28)
[2019-04-24] MEDS: Ferrous Sulfate 325 MG TAB PO SCH ×2 (07:33→16:48)
[2019-04-24] MEDS: Polyethylene Glycol 3350 17 GM Packet PO SCH (08:23)
[2019-04-24] MEDS: Ascorbic Acid 500 mg Chewable Tablet PO SCH (08:23)
[2019-04-24] MEDS: Enoxaparin Sodium 40 MG/0.4 ML SYRINGE SC SCH (08:23)
[2019-04-24] MEDS: Senokot S 8.6-50 MG TAB PO SCH ×2 (08:23→21:23)
[2019-04-24] MEDS: Fluconazole In NaCl,Iso-Osm 200 MG in Premix Bag 1 BAG IVPB SCH (08:38)
[2019-04-24] MEDS: cefTRIAXone\\ROCEPHIN 2 GM in Sodium Chloride 0.9% 100 ML IVPB SCH (20:42)
[2019-04-25] MEDS: Morphine 2 MG/ML SYRINGE SLOW IVP PRN ×6 (02:09→20:08)
[2019-04-25] MEDS: Ferrous Sulfate 325 MG TAB PO SCH ×2 (08:01→16:22)
[2019-04-25] MEDS: Enoxaparin Sodium 40 MG/0.4 ML SYRINGE SC SCH (08:02)
[2019-04-25] MEDS: Ascorbic Acid 500 mg Chewable Tablet PO SCH (08:02)
[2019-04-25] MEDS: Polyethylene Glycol 3350 17 GM Packet PO SCH (08:02)
[2019-04-25] MEDS: Senokot S 8.6-50 MG TAB PO SCH ×2 (08:02→20:15)
[2019-04-25] MEDS: Fluconazole In NaCl,Iso-Osm 200 MG in Premix Bag 1 BAG IVPB SCH (08:09)
--- NOTE | 2019-04-25 08:21 | RAD ---
Single view of the pelvis INDICATION: Removal of external fixator COMPARISON: prior exam dated March 19, 2019 and April 07, 2019. IMPRESSION: There has been interval removal of the external fixator pins from the pelvis. Bilateral u reteral stents have been removed. IUD is unchanged. There is progressive healing without evidence of displacement of the bilateral obturator ring fractures. SI joint screws are unchanged in position.
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
[2019-04-25] MEDS: cefTRIAXone\\ROCEPHIN 2 GM in Sodium Chloride 0.9% 100 ML IVPB SCH (20:08)
[2019-04-26] MEDS: Morphine 2 MG/ML SYRINGE SLOW IVP PRN ×6 (02:38→22:26)
[2019-04-26] MEDS: Enoxaparin Sodium 40 MG/0.4 ML SYRINGE SC SCH (10:29)
[2019-04-26] MEDS: Ascorbic Acid 500 mg Chewable Tablet PO SCH (10:29)
[2019-04-26] MEDS: Ferrous Sulfate 325 MG TAB PO SCH ×2 (10:29→16:52)
[2019-04-26] MEDS: Polyethylene Glycol 3350 17 GM Packet PO SCH (10:30)
[2019-04-26] MEDS: Fluconazole In NaCl,Iso-Osm 200 MG in Premix Bag 1 BAG IVPB SCH (10:30)
[2019-04-26] MEDS: Senokot S 8.6-50 MG TAB PO SCH ×2 (10:30→21:31)
[2019-04-26 16:09] LABS: Fungus Culture Final report (.)
[2019-04-26] MEDS: cefTRIAXone\\ROCEPHIN 2 GM in Sodium Chloride 0.9% 100 ML IVPB SCH (20:56)
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
[2019-04-27] MEDS: Morphine 2 MG/ML SYRINGE SLOW IVP PRN ×5 (03:47→22:25)
[2019-04-27] MEDS: Ascorbic Acid 500 mg Chewable Tablet PO SCH (08:27)
[2019-04-27] MEDS: Ferrous Sulfate 325 MG TAB PO SCH ×2 (08:27→17:19)
[2019-04-27] MEDS: Polyethylene Glycol 3350 17 GM Packet PO SCH (08:28)
[2019-04-27] MEDS: Fluconazole In NaCl,Iso-Osm 200 MG in Premix Bag 1 BAG IVPB SCH (08:28)
[2019-04-27] MEDS: Enoxaparin Sodium 40 MG/0.4 ML SYRINGE SC SCH (08:28)
[2019-04-27] MEDS: Senokot S 8.6-50 MG TAB PO SCH ×2 (08:28→20:11)
[2019-04-27] MEDS ORDERED: Hydrocodone-Acetamin 15 ML UDCUP PO PRN (12:20)
[2019-04-27] MEDS ORDERED: Morphine 2 MG/ML SYRINGE SLOW IVP SCH (13:00)
[2019-04-27] MEDS: cefTRIAXone\\ROCEPHIN 2 GM in Sodium Chloride 0.9% 100 ML IVPB SCH (20:06)
[2019-04-28] MEDS: Fluconazole In NaCl,Iso-Osm 200 MG in Premix Bag 1 BAG IVPB SCH (07:44)
[2019-04-28] MEDS: Morphine 2 MG/ML SYRINGE SLOW IVP PRN ×4 (07:44→23:24)
[2019-04-28] MEDS: Enoxaparin Sodium 40 MG/0.4 ML SYRINGE SC SCH (07:53)
[2019-04-28] MEDS: Ferrous Sulfate 325 MG TAB PO SCH ×2 (07:53→17:11)
[2019-04-28] MEDS: Polyethylene Glycol 3350 17 GM Packet PO SCH ×2 (07:54→13:45)
[2019-04-28] MEDS: Senokot S 8.6-50 MG TAB PO SCH ×2 (07:54→20:31)
[2019-04-28] MEDS: Ascorbic Acid 500 mg Chewable Tablet PO SCH (07:54)
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
[2019-04-28] MEDS: cefTRIAXone\\ROCEPHIN 2 GM in Sodium Chloride 0.9% 100 ML IVPB SCH (20:18)
[2019-04-29] MEDS: Morphine 2 MG/ML SYRINGE SLOW IVP PRN (08:15)
[2019-04-29] MEDS: Fluconazole In NaCl,Iso-Osm 200 MG in Premix Bag 1 BAG IVPB SCH (08:16)
[2019-04-29] MEDS: Ferrous Sulfate 325 MG TAB PO SCH ×2 (08:20→16:34)
[2019-04-29] MEDS: Ascorbic Acid 500 mg Chewable Tablet PO SCH (08:20)
[2019-04-29] MEDS: Senokot S 8.6-50 MG TAB PO SCH ×2 (08:21→21:25)
[2019-04-29] MEDS: Polyethylene Glycol 3350 17 GM Packet PO SCH ×2 (08:21→13:04)
[2019-04-29] MEDS: Enoxaparin Sodium 40 MG/0.4 ML SYRINGE SC SCH (08:21)
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
[2019-04-29] MEDS ORDERED: traMADol HCl 50 MG TAB PO PRN ×2 (13:23)
[2019-04-29] MEDS ORDERED: Acetaminophen 500 MG TAB PO PRN (13:23)
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
[2019-04-30] MEDS: Polyethylene Glycol 3350 17 GM Packet PO SCH ×2 (08:03→09:34)
[2019-04-30] MEDS: Ferrous Sulfate 325 MG TAB PO SCH ×2 (08:03→16:02)
[2019-04-30] MEDS: Ascorbic Acid 500 mg Chewable Tablet PO SCH (08:03)
[2019-04-30] MEDS: Enoxaparin Sodium 40 MG/0.4 ML SYRINGE SC SCH (08:03)
[2019-04-30] MEDS: Senokot S 8.6-50 MG TAB PO SCH ×2 (08:04→20:27)
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
[2019-05-01] MEDS: Ferrous Sulfate 325 MG TAB PO SCH ×2 (07:59→16:05)
[2019-05-01] MEDS: Enoxaparin Sodium 40 MG/0.4 ML SYRINGE SC SCH (08:02)
[2019-05-01] MEDS: Ascorbic Acid 500 mg Chewable Tablet PO SCH (08:02)
[2019-05-01] MEDS: Senokot S 8.6-50 MG TAB PO SCH ×2 (08:02→21:05)
[2019-05-01] MEDS: Polyethylene Glycol 3350 17 GM Packet PO SCH (08:02)
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
[2019-05-02] MEDS: Ascorbic Acid 500 mg Chewable Tablet PO SCH (10:36)
[2019-05-02] MEDS: Ferrous Sulfate 325 MG TAB PO SCH ×2 (10:36→18:36)
[2019-05-02] MEDS: Enoxaparin Sodium 40 MG/0.4 ML SYRINGE SC SCH (10:37)
[2019-05-02] MEDS: Senokot S 8.6-50 MG TAB PO SCH ×2 (10:37→21:28)
[2019-05-02] MEDS: Polyethylene Glycol 3350 17 GM Packet PO SCH ×2 (10:37→11:18)
[2019-05-02 12:15] VITALS: BP 117/75; TEMP 98
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
[2019-05-03] MEDS: Polyethylene Glycol 3350 17 GM Packet PO SCH (08:27)
[2019-05-03] MEDS: Ascorbic Acid 500 mg Chewable Tablet PO SCH (08:27)
[2019-05-03] MEDS: Enoxaparin Sodium 40 MG/0.4 ML SYRINGE SC SCH (08:27)
[2019-05-03] MEDS: Senokot S 8.6-50 MG TAB PO SCH (08:27)
[2019-05-03] MEDS: Ferrous Sulfate 325 MG TAB PO SCH (08:27)
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
== END 2019-05-03 10:15 | DRG 957 ==
LOC: ERS 16:02 → SDC 16:30 → CCU 21:50 → SURG B 03-23 14:05
PROVIDERS: ADMIT Surgery; ATTEND Surgery
PROC: 5A1945Z Respiratory Ventilation, 24-96 Consecutive Hours (ICD-10-PCS; 2019-03-19)
PROC: 30233N1 Transfusion of Nonautologous Red Blood Cells into Peripheral Vein, Percutaneous Approach (ICD-10-PCS; 2019-03-19)
PROC: 0BH17EZ Insertion of Endotracheal Airway into Trachea, Via Natural or Artificial Opening (ICD-10-PCS; 2019-03-19)
PROC: 0DH67UZ Insertion of Feeding Device into Stomach, Via Natural or Artificial Opening (ICD-10-PCS; 2019-03-19)
PROC: 0TSB0ZZ Reposition Bladder, Open Approach (ICD-10-PCS; 2019-03-19)
PROC: 0TQB0ZZ Repair Bladder, Open Approach (ICD-10-PCS; 2019-03-19)
PROC: 0T768DZ Dilation of Right Ureter with Intraluminal Device, Via Natural or Artificial Opening Endoscopic (ICD-10-PCS; 2019-03-19)
PROC: 0TQB0ZZ Repair Bladder, Open Approach (ICD-10-PCS; 2019-03-19)
PROC: 0T170ZB Bypass Left Ureter to Bladder, Open Approach (ICD-10-PCS; 2019-03-19)
PROC: 0T770DZ Dilation of Left Ureter with Intraluminal Device, Open Approach (ICD-10-PCS; 2019-03-19)
PROC: BT14YZZ Fluoroscopy of Kidneys, Ureters and Bladder using Other Contrast (ICD-10-PCS; 2019-03-19)
PROC: 02H633Z Insertion of Infusion Device into Right Atrium, Percutaneous Approach (ICD-10-PCS; 2019-03-19)
PROC: 0QH Lower Bones, Insertion (ICD-10-PCS; 2019-03-20)
PROC: 0QH134Z Insertion of Internal Fixation Device into Sacrum, Percutaneous Approach (ICD-10-PCS; 2019-03-20)
PROC: 0T788DZ Dilation of Bilateral Ureters with Intraluminal Device, Via Natural or Artificial Opening Endoscopic (ICD-10-PCS; 2019-04-08)
PROC: 0TPB8DZ Removal of Intraluminal Device from Bladder, Via Natural or Artificial Opening Endoscopic (ICD-10-PCS; 2019-04-08)
PROC: BT00YZZ Plain Radiography of Bladder using Other Contrast (ICD-10-PCS; 2019-04-08)
PROC: 0UJH8ZZ Inspection of Vagina and Cul-de-sac, Via Natural or Artificial Opening Endoscopic (ICD-10-PCS; 2019-04-08)
PROC: BT14YZZ Fluoroscopy of Kidneys, Ureters and Bladder using Other Contrast (ICD-10-PCS; 2019-04-08)
PROC: 0T763DZ Dilation of Right Ureter with Intraluminal Device, Percutaneous Approach (ICD-10-PCS; 2019-04-15)
PROC: BT14YZZ Fluoroscopy of Kidneys, Ureters and Bladder using Other Contrast (ICD-10-PCS; 2019-04-15)
PROC: 0QP Lower Bones, Removal (ICD-10-PCS; 2019-04-15)
PROC: 0TP98DZ Removal of Intraluminal Device from Ureter, Via Natural or Artificial Opening Endoscopic (ICD-10-PCS; 2019-04-15)
PROC: BT04YZZ Plain Radiography of Kidneys, Ureters and Bladder using Other Contrast (ICD-10-PCS; 2019-04-23)
PROC: 05PY33Z Removal of Infusion Device from Upper Vein, Percutaneous Approach (ICD-10-PCS; principal; 2019-04-29)
DX: S06.0X9A Concussion with loss of consciousness of unspecified duration, initial encounter (principal); S27.2XXA Traumatic hemopneumothorax, initial encounter; T79.5XXA Traumatic anuria, initial encounter; S32.9XXA Fracture of unspecified parts of lumbosacral spine and pelvis, initial encounter for closed fracture; S34.105A Unspecified injury to L5 level of lumbar spinal cord, initial encounter; J96.00 Acute respiratory failure, unspecified whether with hypoxia or hypercapnia; G92 Toxic encephalopathy; S12.500A Unspecified displaced fracture of sixth cervical vertebra, initial encounter for closed fracture; S22.41XA Multiple fractures of ribs, right side, initial encounter for closed fracture; S32.059A Unspecified fracture of fifth lumbar vertebra, initial encounter for closed fracture; S32.049A Unspecified fracture of fourth lumbar vertebra, initial encounter for closed fracture; S32.039A Unspecified fracture of third lumbar vertebra, initial encounter for closed fracture; S32.029A Unspecified fracture of second lumbar vertebra, initial encounter for closed fracture; S32.10XA Unspecified fracture of sacrum, initial encounter for closed fracture; S32.591A Other specified fracture of right pubis, initial encounter for closed fracture; S36.113A Laceration of liver, unspecified degree, initial encounter; S37.031A Laceration of right kidney, unspecified degree, initial encounter; E27.49 Other adrenocortical insufficiency; S37.29XA Other injury of bladder, initial encounter; S37.19XA Other injury of ureter, initial encounter; B37.49 Other urogenital candidiasis; F15.20 Other stimulant dependence, uncomplicated; D62 Acute posthemorrhagic anemia; E27.40 Unspecified adrenocortical insufficiency; S37.011A Minor contusion of right kidney, initial encounter; N36.8 Other specified disorders of urethra; R31.9 Hematuria, unspecified; N32.89 Other specified disorders of bladder; F60.3 Borderline personality disorder; F43.10 Post-traumatic stress disorder, unspecified; E87.6 Hypokalemia; E83.39 Other disorders of phosphorus metabolism; E83.42 Hypomagnesemia; E83.51 Hypocalcemia; V43.42XA Person boarding or alighting a car injured in collision with other type car, initial encounter; N13.5 Crossing vessel and stricture of ureter without hydronephrosis; R40.2362 Coma scale, best motor response, obeys commands, at arrival to emergency department; R40.2132 Coma scale, eyes open, to sound, at arrival to emergency department; R40.2242 Coma scale, best verbal response, confused conversation, at arrival to emergency department; S30.0XXA Contusion of lower back and pelvis, initial encounter
CPT/HCPCS: 31500; 32551; 36415; 36416; 36430; 36556; 51600; 51702; 70450; 71045; 71260; 72125; 72170; 72190; 72192; 74018; 74177; 74178; 74420; 74430; 76000; 80048; 80053; 80306; 80307; 81001; 82533; 82805; 83605; 83735; 84100; 84703; 85007; 85025; 85027; 85610; 85730; 86850; 86900; 86901; 87040; 87070; 87086; 87102; 87205; 87206; 88307; 90471; 93970; 94002; 94003; 94150; 96374; C1713; C1758; C1769; G0390; J0131; J0690; J0696; J1100; J1200; J1450; J1650; J1720; J1815; J1885; J1956; J2001; J2060; J2250; J2270; J2370; J2405; J2704; J2765; J3010; J3475; J3480; J3490; J7042; J7050; L0174; P9016; P9045; Q9961; Q9966; Q9967; S0028